=== PATIENT | female | born 1960 | race Two or more races ===

== ENCOUNTER 2021-12-14 13:47 | Outpatient (REF) | payer OTHER, SELFPAY ==
--- NOTE | ~2021-12-14 | XR_ITS ---
EXAMINATION: XR LUMBOSACRAL SPINE WITH OBLIQUES CLINICAL INFORMATION: Back and hip pain COMPARISON: None TECHNIQUE: AP, both oblique, and lateral views of the lumbar spine. Lateral view of the lumbosacral junction. FINDINGS: There is mild curvature of the lumbar sacral spine to the right. Bone alignment is otherwise normal. No fracture or dislocation is seen. Disc spaces are normal. There is lower lumbar spine facet arthritis. XR/XR lumbar spine 4V min IMPRESSION: Mild curvature of the lower lumbar sacral spine to the right and facet arthritis.
--- NOTE | ~2021-12-14 | XR_ITS ---
EXAMINATION: XR BILATERAL HIPS WITH AP PELVIS CLINICAL INFORMATION: Pain. History of fall. COMPARISON: None TECHNIQUE: AP view of the pelvis and frog-leg lateral views of each hip were obtained. FINDINGS: There is mild bilateral hip arthritis with small superior lateral acetabular osteophytes. The hip joints are otherwise normal. No fracture or dislocation is seen. Bones of the pelvis are normal. Soft tissues are normal. XR/XR hip BI w PEL1V IMPRESSION: Mild bilateral hip arthritis.
== END 2021-12-14 13:48 | disposition home or self-care (01) ==
LOC: HO.XRAY 13:47
PROVIDERS: PCP Pediatrics; Visit Provider Pediatrics
DX: M25.551 Pain in right hip (principal); M25.552 Pain in left hip; M54.9 Dorsalgia, unspecified
CPT/HCPCS: 72110; 73521

== ENCOUNTER 2023-06-14 09:21 | Outpatient (REF) | payer OTHER, SELFPAY | END 2023-06-14 09:22 | disposition home or self-care (01) | LOC: HO.CHCLDS 09:21 | PROVIDERS: Visit Provider Pediatrics | DX: E03.9 Hypothyroidism, unspecified (principal); E11.9 Type 2 diabetes mellitus without complications; F31.62 Bipolar disorder, current episode mixed, moderate; Z79.899 Other long term (current) drug therapy | CPT/HCPCS: 36415; 80048; 80061; 80076; 80178; 82306; 82550; 83036; 84443; 85025 ==

== ENCOUNTER 2023-07-09 20:06 | Outpatient (REF) | payer OTHER, SELFPAY ==
[2023-07-12 06:23] LABS: HPV mRNA E6/E7 Not Detected (Not Detected)
== END 2023-07-09 20:07 | disposition home or self-care (01) ==
LOC: HO.CHCLNP 20:06
PROVIDERS: Visit Provider Pediatrics
DX: Z01.419 Encounter for gynecological examination (general) (routine) without abnormal findings (principal); Z11.51 Encounter for screening for human papillomavirus (HPV)
CPT/HCPCS: 87624; 88142

== ENCOUNTER 2023-10-14 11:56 | Outpatient (REF) | payer OTHER, SELFPAY ==
[2023-10-14 15:19] LABS: Uric Acid 4.8 mg/dL (2.4-5.7)
[2023-10-14 15:32] LABS: Erythrocyte Sedimentation Rate 5 MM/HR (0-20)
== END 2023-10-14 11:57 | disposition home or self-care (01) ==
LOC: HO.CHCLDS 11:56
PROVIDERS: Visit Provider Internal Medicine
DX: M25.571 Pain in right ankle and joints of right foot (principal); G89.29 Other chronic pain
CPT/HCPCS: 36415; 84550; 85652

== ENCOUNTER 2023-10-16 13:32 | Outpatient (REF) | payer OTHER, SELFPAY ==
--- NOTE | ~2023-10-16 | XR_ITS ---
EXAMINATION: XR ANKLE, RIGHT CLINICAL INFORMATION: Right ankle pain COMPARISON: None available. TECHNIQUE: AP, lateral, and mortise views of the right ankle. FINDINGS: No fracture. Alignment is anatomic. No erosions. Joint spaces are maintained. There is plantar and superior calcaneal spurring. Soft tissues are normal. XR/XR ankle RT 2V IMPRESSION: Calcaneal spurring
== END 2023-10-16 13:33 | disposition home or self-care (01) ==
LOC: HO.XRAY 13:32
PROVIDERS: PCP Pediatrics; Visit Provider Internal Medicine
DX: M25.571 Pain in right ankle and joints of right foot (principal); G89.29 Other chronic pain
CPT/HCPCS: 73600

== ENCOUNTER 2023-10-24 09:28 | Outpatient (REF) | payer OTHER, SELFPAY ==
--- NOTE | ~2023-10-24 | XR_ITS ---
EXAMINATION: XR KNEE, RIGHT CLINICAL INFORMATION: Swelling and pain after fall COMPARISON: None available. TECHNIQUE: Four views of the right knee. FINDINGS: No fracture or dislocation. No suprapatellar joint effusion. Mild narrowing of the medial joint space height. Small tricompartmental marginal osteophytes, most predominantly involving the patellofemoral compartment. XR/XR knee RT 3V IMPRESSION: Mild degenerative changes of the right knee without fracture or dislocation.
== END 2023-10-24 09:29 | disposition home or self-care (01) ==
LOC: HO.XRAY 09:28
PROVIDERS: Visit Provider Pediatrics
DX: M79.604 Pain in right leg (principal)
CPT/HCPCS: 73562

== ENCOUNTER 2024-01-17 10:08 | Outpatient (REF) | payer OTHER, SELFPAY ==
--- NOTE | ~2024-01-17 | XR_ITS ---
EXAMINATION: XR HIP, RIGHT CLINICAL INFORMATION: New onset right groin pain for 2 weeks without trauma. COMPARISON: 12/14/2021. TECHNIQUE: Two views of the right hip. Limited visualization due to overlying bone and soft tissue structures. FINDINGS: Right hip alignment preserved. Mild degenerative changes with lateral acetabular hypertrophic change and mild joint space narrowing. XR/XR hip RT min 2V IMPRESSION: Mild degenerative changes in the right hip. Additional imaging with CT scan or MRI recommended for further evaluation if there is clinical concern for fracture or other underlying pathology.
== END 2024-01-17 10:09 | disposition home or self-care (01) ==
LOC: HO.XRAY 10:08
PROVIDERS: PCP Pediatrics; Visit Provider Internal Medicine
DX: R10.31 Right lower quadrant pain (principal)
CPT/HCPCS: 73502

== ENCOUNTER 2024-04-01 15:05 | Outpatient (REF) | payer OTHER, SELFPAY ==
[2024-04-01 19:07] LABS: Anion Gap 14 (12-20); Blood Urea Nitrogen 16 mg/dL (9-16); Calcium 9.8 mg/dL (8.4-10.2); Carbon Dioxide 22 mmol/L (22-29); Chloride 109 mmol/L (96-108); Estimated Glomerular Filt Rate 60; Glucose Random 119 mg/dL (60-115); Potassium 3.4 mmol/L (3.3-5.1); Sodium 142 mmol/L (135-145)
[2024-04-01 19:26] LABS: TSH reflex Free T4 2.04 uIU/mL (0.32-4.0)
== END 2024-04-01 15:06 | disposition home or self-care (01) ==
LOC: HO.CHCLDS 15:05
PROVIDERS: Visit Provider Internal Medicine
DX: Z13.89 Encounter for screening for other disorder (principal)
CPT/HCPCS: 36415; 80048; 84443

== ENCOUNTER 2024-04-01 15:31 | Outpatient (REF) | payer OTHER, SELFPAY ==
--- NOTE | ~2024-04-01 | XR_ITS ---
EXAMINATION: XR LUMBOSACRAL SPINE CLINICAL INFORMATION: Lower back pain after fall. COMPARISON: Lumbar spine x-rays of 12/14/2021. TECHNIQUE: Three views of the lumbosacral spine. FINDINGS: Minimal left convex curvature is noted of the lumbar spine. There are 5 lumbar-type bdf-igc-[id number] vertebrae. Vertebral body heights are maintained. Step ladder pattern minimal retrolisthesis is noted from L1 to L5. Intervertebral disc spaces are preserved. Small marginal endplate osteophytes are noted at multiple levels. Posterior elements appear intact. No suspicious lytic or blastic osseous lesion is seen. Minimal dorsal displacement of the distalmost coccygeal segment which does not appear to be included in the yqydj-bp-qlca on the lumbar spine x-rays of 12/14/2021. Remainder of the sacrum and coccyx appear intact. Sclerosis along the sacral and iliac side of bilateral sacroiliac joints is noted. Limited evaluation of the visualized hip joints and symphysis pubis is unremarkable. XR/XR lumbar spine 2-3V IMPRESSION: No evidence of acute compression fracture. Minimal dorsal displacement of the last coccygeal segment is nonspecific and could be trauma-related or congenital. Mild lumbar spondylosis. Sclerosis along the sacroiliac joints is suspected which may indicate sacroiliitis. Recommend clinical correlation.
== END 2024-04-01 15:32 | disposition home or self-care (01) ==
LOC: HO.XRAY 15:31
PROVIDERS: PCP Pediatrics; Visit Provider Internal Medicine
DX: M54.50 Low back pain, unspecified (principal); W19.XXXA Unspecified fall, initial encounter
CPT/HCPCS: 36415; 72100; 80048; 84443

== ENCOUNTER 2024-05-26 13:54 | Outpatient (REF) | payer OTHER, SELFPAY ==
[2024-05-26 15:00] LABS: MANUAL DIFF FLAG NO
[2024-05-26 15:10] LABS: Basophils Percent Auto 0.4 % (0-2); Eosinophils Absolute Auto 0.2 X10*3/uL (0.0-0.4); Eosinophils Percent Auto 1.8 % (0-4); Hematocrit 41.9 % (37.0-47.0); Hemoglobin 13.7 g/dl (12.0-16.0); Imm Gran Abs Auto 0.02 X10*3/uL (0.00-0.03); Imm Gran Pct Auto 0.2 % (0.0-0.4); Lymphocytes Absolute Auto 2.1 X10*3/uL (1.2-4.9); Lymphocytes Percent Auto 23.3 % (20-40); Mean Corpuscular HGB Conc 32.7 g/dl (31.0-35.0); Mean Corpuscular Hemoglobin 28.8 pg (27.0-33.0); Mean Platelet Volume 12.5 fL (9.4-12.3); Monocytes Absolute Auto 0.4 X10*3/uL (0.1-1.2); Monocytes Percent Auto 4.3 % (2-11); Neutrophils Absolute Auto 6.3 x10*3/uL (2.0-8.3); Platelet Count 248 X10*3/uL (160-400); Red Blood Count 4.76 X10*6/uL (4.20-5.50); Red Cell Distribution Width 13.5 % (11.0-16.0); White Blood Count 9.1 X10*3/uL (4.8-10.8)
[2024-05-26 15:44] LABS: Alanine Aminotransferase 15 U/L (0-31); Albumin Level 4.4 g/dL (3.5-5.0); Alkaline Phosphatase 84 U/L (39-117); Anion Gap 11 (12-20); Aspartate Amino Transferase 17 U/L (5-31); Bilirubin Direct 0.1 mg/dL (0.0-0.5); Bilirubin Total 0.3 mg/dL (0.0-1.0); Blood Urea Nitrogen 15 mg/dL (9-16); Calcium 9.8 mg/dL (8.4-10.2); Carbon Dioxide 23 mmol/L (22-29); Chloride 110 mmol/L (96-108); Estimated Glomerular Filt Rate > 60; Glucose Random 118 mg/dL (60-115); Iron 62 mcg/dL (30-160); Magnesium 2.1 mg/dL (1.6-2.6); Percent Iron Saturation 25 % (15-50); Potassium 3.3 mmol/L (3.3-5.1); Sodium 141 mmol/L (135-145); Total Iron Binding Capacity 245 mcg/dL (228-428); Total Protein 7.3 g/dL (6.5-8.0); Unsaturated Iron Binding 183 ug/dL
[2024-05-26 15:48] LABS: Vitamin D 25-OH Total 38.9 ng/mL (>30)
[2024-05-26 16:09] LABS: Folate 9.7 ng/mL (> or = 4.0); Vitamin B12 280 pg/mL (200-900)
== END 2024-05-26 13:55 | disposition home or self-care (01) ==
LOC: HO.CHCLDS 13:54
PROVIDERS: Visit Provider Pediatrics
DX: G62.9 Polyneuropathy, unspecified (principal); E11.9 Type 2 diabetes mellitus without complications
CPT/HCPCS: 36415; 80048; 80076; 82306; 82607; 82746; 83540; 83735; 84443; 85025

== ENCOUNTER 2024-12-30 09:30 | Outpatient (REF) | payer OTHER, SELFPAY ==
--- OUTSIDE RECORDS SUMMARY | 2024-12-30 10:34 | XMS_ITS | Data Portability ---
Author Organization [employer] [facility] [place] in - [facility] Address [address] [place] [phone] Care Team Providers Care Seed And Fertilizer Specialist Name Role Phone [facility] OTHER [phone] [facility] OTHER Assessment No assessment recorded. Plan of Treatment Reminders Order Date Submit Date Provider Last Modified By Organization Details Last Modified Time Details Appointments None recorded. Lab BMP, serum or plasma 2023 024 [facility], [address] [place] [address], [id number] 10:20:30 Referral None recorded. Procedures None recorded. Surgeries None recorded. Imaging None recorded. Medication Orders diclofenac 1 % topical gel 2023 024 [id number], [address], [place], [place], [id number], 10:22:50 Patient TargetsNo targets recorded. Patient InstructionsNo instructions recorded. Reason for Referral None Reported. Results Created Date Observation Date Name Description Value Unit Range Abnormal Flag Note LastModifiedBy Organization Detail LastModifiedTime 01/10/2001/10/2024 BMP, serum or plasm a BUN 14 Not Available [facility] [address], [id number] 01/10/2024 10:03:22 01/10/20 24 01/10/2024 BMP, serum or plasm a Ca 1.19 Not Available [facility] [address], [phone] 01/10/2024 10:03:22 01/10/20 24 01/10/2024 BMP, serum or plasm a CI- 109 Not Available [facility] [address], [phone] 01/10/2024 10:03:22 01/10/20 24 01/10/2024 BMP, serum or plasm a CRE 0.74 Not Available [facility] [address], [id number] 01/10/2024 10:03:22 01/10/20 24 01/10/2024 BMP, serum or plasm a GLU 91 Not Available [facility] [address], [address] [place] [address] 01/10/2024 10:03:22 01/10/20 24 01/10/2024 BMP, serum or plasm a K+ 3.9 Not Available [facility] [address], [address] [place] [address] 01/10/2024 10:03:22 01/10/20 24 01/10/2024 BMP, serum or plasm a Na+ 143 Not Available [facility] [address], [address] [place] [address] 01/10/2024 10:03:22 01/10/20 24 01/10/2024 BMP, serum or plasm a tCO2 24.9 Not Available [facility] [address], [id number] 01/10/2024 10:03:22 Result Notes None recorded. Medical Equipment None Reported. Medications Name Sig Start Date Stop Date Status Note LastModified by Organization Details LastModified Time celecoxib 200 mg capsule active Not Available Not Available Not Available atorvastatin 10 mg tablet TAKE 1 TABLET BY MOUTH EVERY DAY active Not Available Not Available No t Available doxepin 25 mg capsule TAKE 1 CAPSULE BY MOUTH EVERY NIGHT AT BEDTIME active Not Available Not Available No t Available doxepin 75 mg capsule TAKE 1 CAPSULE BY MOUTH EVERY NIGHT AT BEDTIME active Not Available Not Available No t Available sertraline 100 mg tablet TAKE 1 AND 1/2 TABLETS BY MOUTH EVERY MORNING active Not Available Not Available No t Available lithium carbonate 300 mg capsule TAKE 1 CAPSULE BY MOUTH IN THE MORNING AND 2 CAPSULES AT BEDTIME active Not Available Not Available No t Available levothyroxin e 50 mcg tablet TAKE 1 TABLET BY MOUTH ONCE DAILY active Not Available Not Available No t Available omeprazole 20 mg capsule,rica yed release TAKE 1 CAPSULE BY MOUTH EVERY DAY active Not Available Not Available No t Available alprazolam 2 mg tablet TAKE 1 TABLET BY MOUTH TWICE DAILY NEEDED active Not Available Not Available No t Available epinephrine 0.3 mg/0.3 mL injection, auto-injecto r INJECT 1 PEN IN THE MUSCLE ONE TIME DIRECTED active Not Available Not Available No t Available estradiol 0.01% (0.1 mg/gram) vaginal cream active Not Available Not Available Not Available prazosin 2 mg capsule TAKE 1 CAPSULE BY MOUTH EVERY EVENING FOR NIGHTMARES active Not Available Not Available N ot Available aripiprazole 5 mg tablet TAKE 1 AND 1/2 TABLETS BY MOUTH EVERY MORNING active Not Available Not Available No t Available diclofenac 1 % topical gel APPLY 2 GRAMS TO THE AFFECTED AREA TOPICALLY FOUR TIMES DAILY active Not Available Not Available No t Available cholecalcife rol (vitamin D3) 50 mcg (2,000 unit) capsule TAKE 1 CAPSULE BY MOUTH EVERY MORNING active Not Available Not Available No t Available Vitals Date Recorded Heart rate Respiratory rate Oxygen saturation Oxygen saturation in Arterial blood by Pulse oximetry Body weight Body temperature Systolic blood pressure Diastolic blood pressure Provider Name and Address Organization Details Last Updated DateTime 4 70 /min 18 /min 98 % 98 % 49745.6 64 g 98.2 [degF] 122 mm[Hg] 82 mm[Hg] Not Available [facility] - production 4 09:49:36 Social History None recorded. Functional Status None recorded. Mental Status None recorded. Family History Nothing Reported. Medical History No medical history recorded. Gynecological HistoryNo gynecological history recorded. Obstetrics History GPAL:G 0 P 0 0 0 0 Past Encounters Encounter ID Performer Location Encounter Start Date Encounter Closed Date Diagnosis/Indication Diagnosis SNOMED-CT Code Diagnosis ICD10 Code Diagnosis Note [id number] DOMINGO SHAH MD [facility] [address] [place] [phone] 01/10/2024 09:49:32 01/12/2024 12:33:42 Inguinal pain 341610885 R10.2 Evaluation in the field was performed by my numerical control machine operator colleague, as noted above, I provided real-time direction and supervisio n for this visit. The evaluation revealed 63 yo female Bengali speaking with hx of DM with complains of right inguinal area pain since Friday 01/05. Pt reports that pain is worse with ambulation and better at rest. Pain much improved today compared to yesterday. Reports a fall 2 months ago but no pain after the fall until 5 days ago. Denies dysuria, frequency, hematuria. Has been having normal bowel movement. Denies fevers, chills, N/V/D. No swelling or redness at the area of interest .VSSUpon exam pt with FROM of the hip per numerical control machine operator. No pain with eternal or external rotation of the hip, flexion or extension but tender to palpation on the right inguinal area ( see photos). Denies pain worse with cough. No bulging on paramedics palpation. POC BMP with normal electrolyt es. BUN 14, Creat 0.74 Impression :Right inguinal area pain Plan:The etiology of the pain is unknown at this time. It could represent referred pain from the hip, given worsening symptoms with ambulation , but no pain was elicited during a quick hip exam by the numerical control machine operator. A possible inguinal hernia was considered , but no bulging was observed on examinatio n.The patient's pain is currently much improved. They were advised to use Tylenol for pain relief.Rx for diclofenac gel sent to her pharmacy. Declined IM medication s The patient may benefit from a CT abdomen/pe lvis with contrast to evaluate her hip and possible hernia. Her renal function is stable and permits the use of contrast. Patrica Terrell, Nurse at [facility] [place], was contacted after the visit. Lab results are needed for contrast administra tion. She will send the informatio n to the patient's primary care physician. Red flags were discussed with the patient. Primary care, considerCT abdomen/ pelvis with contrast to evaluate her hip and possible hernia. Her renal function is stable and allows contrastDi sposition: We discussed the diagnostic uncertaint y of home visits and the risk associated with this. In this case, the patient and I felt this to be an acceptable and reasonable amount of risk given the benefit of avoiding an ED visit. We discussed the need to seek care urgently/e mergently in the setting of any new or worsening serious symptoms, particular ly fever, redness in the affected area, worsening pain , bulging , N/V/D or any other concerns Health Concerns Section Related Observation LastModified by Organization Detai ls LastModified Time None Recorded Concern Status LastModified by Organization Details LastModified Time None Recorded Advance Directives Directive None Recorded Payers Encounter Date Sequence Insurance Name Policy Number Policy Encarnacion Covered Member ID Encarnacion Member ID Guarantor Name 01/10/2024 1 [facility] - DOS ON OR AFTER 2022 - DUAL ELIGIBLE - HALFWAY OPTIONS AND ONE CARE (MEDICARE REPLACEMENT/ADV ANTAGE - HMO) Magalis Parker [id number] Magalis Parker Notes Date Note Type Note Provider Name and Address Organization Details Recorded Time 01/10/2024 text/html HPI: right lower quadrant pain since Saturday. Per pt pain is intermittent. Pt denies any flan pain, urinary sx, vaginal discharge, or N/V. Per pt if applies pressure no pain. Per pt worse with position changes. Per pt did have a fall 4 month ago. Pt unable to come into our walk in center. agrees to [facility] ................. ................. ................. ................. ................. ................. ................. ................. ..... [facility] Nurse Triage Notes (Elmira Mcclain): Comments: [facility] RN DID NOT NEED FURTHER INFO ................. ................. ................. ................. ................. ................. ................. ................. ..... Trainmaster Note From Prashant Underwood: Pt co hip and left lower groan pain for 5 days. Sts hurts when walking and getting up from sitting position. Pt denies injury, fever, urinary pain, CP , SOB, NVD. Baseline vitals assessed. No pain upon palpation of area of pain. Pt sts it feels better today that in did yesterday. Pt has full ROM of right leg/hip. Afebrile. [facility] contacted and [facility] bloodwork unremarkable. Tylenol and diclofinac gel called into [facility]. [facility] will reach out to pcp for scheduling of imaging appt. Pt education on signs indicating the ER. ................. ................. ................. ................. ................. ................. ................. ................. ..... Disposition: Fulfilled DOMINGO SHAH MD [address] [facility],[address], [place], [address], [place] 01/10/2024 12:56:06 OBGyn Episode No OBEpisode recorded.
--- OUTSIDE RECORDS SUMMARY | 2024-12-30 10:34 | XMS_ITS | Encounter Summary ---
Author Organization [employer] Address [address] [place] [address] Care Team Providers Care Alteration Workroom Supervisor Name Role Phone Katrin Garcia MD Primary Care Provider [phone] Reason for Visit * Reason Comments Med Refill Encounter Details Date Type Department Care Team ([facility] st Contact Info) Description 07/24/2024 Refill [facility] MED & PEDS [address] [place], [place] [phone] Katrin Garcia MD [address] [place] [address] Social History Tobacco Use Types Packs/Day Years Used Date Smoking Tobacco: Never Passive Smoke Exposure: Never Smokeless Tobacco: Never Alcohol Use Standard Drinks/Week Comments Never 0 (1 standard drink = 0.6 oz pur e alcohol) Depression Answer Date Recorded Patient Health Questionnaire-9 Score 7 05/30/2023 Housing Stability Answer Date Recorded What is your housing situation today? I have gomez phillips 07/09/[address] you li ve. Do you have problems with any of the following? None of the above 07/09/2023 Food Insecurity Answer Date Recorded Within the past 12 months, y ou worried that your food would run out before you got money to buy more: Often true 07/09/2023 Within the past 12 months,th e food you bought just didn't last and you didn't have enough money to get more: Often true Transportation Answer Date Recorded In the past 12 months, has l ack of transportation kept you from medical appts, meetings, work or from getting things needed for daily living? I am not sure 07/09/2023 Utilities Answer Date Recorded In the past 12 months, has t he [employer], gas, oil or water company threatened to shut off services in your home? No 07/09/2023 Depression Answer Date Recorded Patient Health Questionnaire-2 Score 2 05/30/2023 Comments Unknown Sex and Gender Information Value Date Recorded Sex Assigned at Female 07/09/2022 10:39 AM EDT Legal Sex Female 10:39 AM EDT Gender Identity Female 07/09/2022 10:39 AM EDT Sexual Orientation Straight 07/09/2022 10 :39 AM EDT documented as of this encounter Plan of Treatment Upcoming Encounters Date Type Department Care Team (Late st Contact Info) Description 03/24/2025 10:15 AM EDT Office Visit [facility] MED & PEDS [address] [place] [address] Katrin Garcia MD [address] [place] [address] documented as of this encounter Visit Diagnoses Not on filedocumented in this encounter Additional Health Concerns Assessment Noted Time PHQ-9 Depression Total Score: 7 05/30/20 23 2:28 PM EDT documented as of this encounter Care Teams Alteration Workroom Supervisor Relationship Specialty Start Date End Date Katrin Garcia MD [address] [place] [address] PCP - General Family Medicine 10/04/21 documented as of this encounter
--- OUTSIDE RECORDS SUMMARY | 2024-12-30 10:34 | XMS_ITS | Encounter Summary ---
Author Organization [employer] Address [address] [place] [address] Care Team Providers Care Calker Name Role Phone Katrin Garcia MD Primary Care Provider [phone] Reason for Visit * Reason Comments Med Refill Encounter Details Date Type Department Care Team ([facility] st Contact Info) Description 07/22/2024 Refill [facility] CHC MED & PEDS [address] [place], [place] [phone] Katrin Garcia MD [address] [place] [address] Social History Tobacco Use Types Packs/Day Years [...] the past 12 months, has t he [employer], gas, oil or water company threatened to [...] Description 03/24/2025 10:15 AM EDT Office Visit [facility] MED & PEDS [address] [place] [address] Katrin Garcia MD [address] [place] [address] documented as of this encounter Visit Diagnoses Not on filedocumented in this encounter Additional Health Concerns Assessment Noted Time PHQ-9 Depression Total Score: 7 05/30/20 23 2:28 PM EDT documented as of this encounter Care Teams Calker Relationship Specialty Start Date End Date Katrin Garcia MD [address] [place] [address] PCP - General Family Medicine 10/04/21 documented as of this encounter
--- OUTSIDE RECORDS SUMMARY | 2024-12-30 10:34 | XMS_ITS | Encounter Summary ---
Author Organization [employer] Address [address] [place] [address] Care Team Providers Care Urgent Care Physician Name Role Phone Katrin Garcia MD Primary Care Provider Reason for Visit * Reason Comments Med Refill Encounter Details Date Type Department Care Team ([facility] st Contact Info) Description 07/11/2024 Refill [facility] CHC MED & PEDS [address] [place], [place] [phone] Katrin Garcia MD [address] [place] [address] Social History Tobacco Use Types Packs/Day Years [...] the past 12 months, has t he [employer], gas, oil or water company threatened to [...] 10:15 AM EDT Office Visit [facility] MED & PEDS [address] [place] [address] Katrin Garcia MD [address] [place] [address] documented as of this encounter Visit Diagnoses Not on filedocumented in this encounter Additional Health Concerns Assessment Noted Time PHQ-9 Depression Total Score: 7 05/30/20 23 2:28 PM EDT documented as of this encounter Care Teams Urgent Care Physician Relationship Specialty Start Date End Date Katrin Garcia MD [address] [place] [address] PCP - General Family Medicine 10/04/21 documented as of this encounter
--- OUTSIDE RECORDS SUMMARY | 2024-12-30 10:34 | XMS_ITS | Encounter Summary ---
Author Organization [employer] Address [address] [place] [address] Care Team Providers Care Care Coordinator Name Role Phone Katrin Garcia MD Primary Care Provider [phone] Reason for Visit * Reason Onset Date Comments Appointment Request 12/29/2024 Encounter Details Date Type Department Care Team ([facility] st Contact Info) Description 12/29/2024 Telephone [facility] MEDICINE [address] [place] [address] Katrin Garcia MD [address] [place], [place] [phone] Appointment Request Social History Tobacco Use Types Packs/Day Years [...] the past 12 months, has t he electric, gas, oil or water company threatened to [...] AM EDT documented as of this encounter Miscellaneous Notes * Telephone Encounter - Yanelis Herman [place] - 12/29/2024 10:46 AM EDT Contacted pt in regards to apt request with nicholas rg Professor Of Industrial [employer]. Had to LVM with call back number. LB documented in this encounter Plan of Treatment Upcoming Encounters Date Type Department Care Team ([facility] st Contact Info) Description 03/24/2025 10:15 AM EDT Office Visit [facility] CHC MED & PEDS [address] [place] [address] Katrin Garcia MD [address] [place] [address] documented as of this encounter Visit Diagnoses Not on filedocumented in this encounter Additional Health Concerns Assessment Noted Time PHQ-9 Depression Total Score: 7 05/30/20 23 2:28 PM EDT documented as of this encounter Care Teams Care Coordinator Relationship Specialty Start Date End Date Katrin Garcia MD [address] [place] [address] PCP - General Family Medicine 10/04/21 documented as of this encounter
--- OUTSIDE RECORDS SUMMARY | 2024-12-30 10:34 | XMS_ITS | Encounter Summary ---
Author Organization [employer] Address [address] [place] [address] Care Team Providers Care Grocery Caddy Name Role Phone Katrin Garcia MD Primary Care Provider [phone] Encounter Details Date Type Department Care Team (Late st Contact Info) Description 10/19/2023 Orders Only [facility] CHC MED & PEDS [address] [place], [place] [phone] Lita Keen MD [address] [place] [address] Calcaneal spur of right foot (Primary Dx) Social History Tobacco Use Types Packs/Day Years [...] Description 03/24/2025 10:15 AM EDT Office Visit [facility] MED & PEDS [address] [place] [address] Katrin Garcia MD [address] [place] [address] documented as of this encounter Visit Diagnoses Diagnosis Calcaneal spur of right foot- Primary documented in this encounter Additional Health Concerns Assessment Noted Time PHQ-9 Depression Total Score: 7 05/30/20 23 2:28 PM EDT documented as of this encounter Care Teams Grocery Caddy Relationship Specialty Start Date End Date Katrin Garcia MD [address] [place] [address] PCP - General Family Medicine 10/04/21 documented as of this encounter
--- OUTSIDE RECORDS SUMMARY | 2024-12-30 10:34 | XMS_ITS | Encounter Summary ---
Author Organization [employer] Address [address] [place] [address] Care Team Providers Care Driver Sales Name Role Phone Katrin Garcia MD Primary Care Provider [phone] Reason for Visit * Reason Comments Med Refill Encounter Details Date Type Department Care Team (Late st Contact Info) Description 04/08/2024 Refill [facility] MEDICINE [address] [place] [address] Katrin Garcia MD [address] [place], [place] [phone] Diet-controlled type 2 diabetes mellitus (CMS/HCC) Social History Tobacco Use Types Packs/Day Years [...] Description 03/24/2025 10:15 AM EDT Office Visit [facility] MED & PEDS [address] [place] [address] Katrin Garcia MD [address] [place] [address] documented as of this encounter Visit Diagnoses Diagnosis Diet-controlled type 2 diabetes mellitus ([facility]) Type II or unspecified type diabetes mellitus without mention of complication, not stated as uncontrolled documented in this encounter Additional Health Concerns Assessment Noted Time PHQ-9 Depression Total Score: 7 05/30/20 23 2:28 PM EDT documented as of this encounter Care Teams Driver Sales Relationship Specialty Start Date End Date Katrin Garcia MD [address] [place] [address] PCP - General Family Medicine 10/04/21 documented as of this encounter
--- OUTSIDE RECORDS SUMMARY | 2024-12-30 10:34 | XMS_ITS | Encounter Summary ---
Author Organization [employer] [facility] Address [address] [facility] 7[address] [place] [address] Care Team Providers Care Utilization Engineer Name Role Phone Katrin Garcia MD Primary Care Provider [phone] Reason for Referral * Cardiology (Routine) - Closed Specialty Diagnoses / Procedures Referred By Contac t Referred To Contact Cardiology Diagnoses Syncope, unspecified syncope type Procedures Holter monitor - 48 hour Lita Keen MD [address] [place] [address] Phone: tel: fax: [address] Phone: tel: fax: Referral ID Status Reason Start Date Expiration Date Visits Re quested Visits Authorized [id number] Closed 04/10/2024 04/10/2025 1 1 Encounter Details Date Type Department Care Team (Late st Contact Info) Description 04/10/2024 Orders Only [facility] MED & PEDS [address] [place] [address] Lita Keen MD [address] [place] [address] Syncope, unspecified syncope type (Primary Dx) Social History Tobacco Use Types [...] Upcoming Encounters Date Type Department Care Team ([facility] Contact Info) Description 03/24/2025 10:15 AM EDT Office Visit [facility] MED & PEDS [address] [place] [address] Katrin Garcia MD [address] [place] [address] Scheduled Orders Name Type Priority Associated Diagnoses Orde r Schedule Holter monitor - 48 hour Cardiac Services Routine Syncope, unspecified syncope type Expected: 04/10/2024 (Approximate), Expires: 04/10/2026 documented as of this encounter Visit Diagnoses Diagnosis Syncope, unspecified syncope type- Primary documented in this encounter Additional Health Concerns Assessment Noted Time PHQ-9 Depression Total Score: 7 05/30/20 23 2:28 PM EDT documented as of this encounter Care Teams Utilization Engineer Relationship Specialty Start Date End Date Katrin Garcia MD [address] [place] [address] PCP - General Family Medicine 10/04/21 documented as of this encounter
--- OUTSIDE RECORDS SUMMARY | 2024-12-30 10:34 | XMS_ITS | Clinical Summary ---
Author Organization [facility] Address [address] [place] [address] Care Team Providers Care Call Taker Name Role Phone Unavailable Primary Care Provider Unavailabl e Social History Tobacco Use Types Packs/Day Years Used Date Smoking Tobacco: Never Assessed Comments Unknown Sex and Gender Information Value Date Recorded Sex Assigned at Not on file Legal Sex Female 4:38 AM EST Gender Identity Not on file Sexual Orientation Not on file Plan of Treatment Health Maintenance Due Date Last Done Comments DTaP,Tdap,and Td Vaccines (1 - Tdap) 1978 Cervical Cancer Screening: Pap Smear 1980 Pneumococcal Vaccine: 50+ Years (1 of 1 - PCV) 2009 Zoster Vaccines (1 of 2) 2009 Colorectal Cancer Screening: Colonoscopy 08/12/2022 Depression Screening 08/12/2022 Hepatitis C Screening 08/12/2022 Social Influencers of Health Screening 08/12/2022 COVID-19 Vaccine ( season) 2024 Falls Risk Assessment 2024 Influenza Vaccine (Season Ended) 2025 Breast Cancer Screening 06/08/2026 06/08/20 24, 06/06/2023, 2022, Additional history exists Osteoporosis Screening (Bone Density Screening) 11/04/2029 11/04/2019 RSV Immunization Adult Patients (1 - 1-dose 75+ series) 2034 HIB Vaccines Aged Out No longer eligi ble based on patient's age to complete this topic HPV Vaccines Aged Out No longer eligi ble based on patient's age to complete this topic Hepatitis A Vaccines Aged Out No long er eligible based on patient's age to complete this topic Hepatitis B Vaccines Aged Out No long er eligible based on patient's age to complete this topic IPV Vaccines Aged Out No longer eligi ble based on patient's age to complete this topic MMR Vaccines Aged Out No longer eligi ble based on patient's age to complete this topic Meningococcal ACWY Vaccine Aged Out N o longer eligible based on patient's age to complete this topic Meningococcal B Vaccine Aged Out No l onger eligible based on patient's age to complete this topic Pneumococcal Vaccine: Pediatrics (0 to 5 Years) and At-Risk Patients (6 to 64 Years) Aged Out No longer eligible based on patient's age to complete this topic RSV Immunization Patients Under 20 months Aged Out No longer eligible based on patient's age to complete this topic Varicella Vaccines Aged Out No longer eligible based on patient's age to complete this topic Procedures Procedure Name Priority Date/Time Associated Diagnosis Comments [facility] SCREENING DIGITAL Routine 06/08/2024 12:51 PM EDT [facility] DEXA AXIAL SKELETON Routine 11/04/2019 2:10 PM EST Other specified disorders of bone density and structure, other site from Last 3 Months or Most Recently Relevant to Health Maintenance Results * [facility] SCREENING DIGITAL (06/08/2024 12:51 PM EDT) Anatomical Region Laterality Modality Mammography 06/08/2024 9:07 AM EDT Narrative 06/08/2024 12:51 PM EDT [facility] Diagnostic Imaging Department [address] [place] [address] Patient: ??ALIREZA PARKER ?/Age/Sex: 1960 - 64 - F Unit#: ??[id number] ? Location/Status: ??SPDIMAM/REG CLI ? Mnemonic/Ordering Site: ??DIGSC/SPMAM Ordering Physician: ??CONI GARCIA Sari Screening Digital - 06/08/24 - 922 Report Status:Signed EXAM: [facility] Screening Digital EXAM DATE AND TIME: 06/08/2024 9:24 AM HISTORY: ??Screening. COMPARISON: ??06/06/23, 06/01/22, 05/29/21 TECHNIQUE: Bilateral digital breast tomosynthesis was performed in the CC and MLO projections. Computer aided detection with [employer] 3D 3.1 was employed. TISSUE DENSITY: b. There are scattered areas of fibroglandular density. FINDINGS: No suspicious masses, grouped microcalcifications, or areas of architectural distortion are seen. Coarse, benign calcifications in the medial right breast are without significant change. The skin and vascularity are unremarkable. IMPRESSION: Stable mammographic appearance of the breasts. ??No evidence of malignancy is seen. A negative mammogram in the presence of a clinically suspicious palpable abnormality does not preclude the possibility of malignancy or alter the indications for biopsy. BI-RADS: ??Category 2: Benign RECOMMENDATION(S): 1: Routine screening mammogram BILATERAL in 1 year. Mammogram performed at [facility] [place] [address] Dictating Physician: ??JUANITA RENTERIA MD Electronically Signed by: ??JUANITA RENTERIA MD Dic Date/Time: ??06/08/24 1251 Sign date/Time: ??06/08/24 1251 Procedure Note Juanita Renteria MD - 06/24/2024 [facility] Diagnostic Imaging Department [address] [place] [address] Patient: ALIREZA PARKER /Age/Sex: 1960 - 64 - F Unit#: [id number] Location/Status: SPDIMAM/REG CLI Mnemonic/Ordering Site: [facility] Ordering Physician: CONI GARCIA [facility] Screening Digital - 06/08/24 - 922 Report Status:Signed EXAM: [facility] Screening Digital EXAM DATE AND TIME: 06/08/2024 9:24 AM HISTORY: Screening. COMPARISON: 06/06/23, 06/01/22, 05/29/21 TECHNIQUE: Bilateral digital breast tomosynthesis was performed in the CCand MLO projections. Computer aided detection with [employer]de[employer] 3D 3.1was employed. TISSUE DENSITY: b. There are scattered areas of fibroglandular density. FINDINGS: No suspicious masses, grouped microcalcifications, or areas ofarchitectural distortion are seen. Coarse, benign calcifications in the medial rightbreast are without significant change. The skin and vascularity areunremarkable. IMPRESSION: Stable mammographic appearance of the breasts. No evidence of malignancyis seen. A negative mammogram in the presence of a clinically suspicious palpable abnormality does not preclude the possibility of malignancy or alter the indications for biopsy. BI-RADS: Category 2: Benign RECOMMENDATION(S): 1: Routine screening mammogram BILATERAL in 1 year. Mammogram performed at [facility] [place] [address] Dictating Physician: JUANITA RENTERIA MD Electronically Signed by: JUANITA RENTERIA MD Dic Date/Time: 06/08/24 1251 Sign date/Time: 06/08/24 1251 us Coni Garcia MD IMG BI PROCEDURES Final Resul t * SARI DEXA AXIAL SKELETON (11/04/2019 2:10 PM EST) Anatomical Region Laterality Modality Mammography 11/04/2019 8:49 AM EST Narrative 11/04/2019 2:10 PM EST [facility] Diagnostic Imaging Department [address] [place] [address] Patient: ??ALIREZA PARKER ?/Age/Sex: 1960 - 59 - F Unit#: ??[id number] ? Location/Status: ??SPDIMAM/PRE CLI ? Mnemonic/Ordering Site: ??MAMDEXAAX/SPMAM Ordering Physician: ??LIZZ CHAVEZ MD Sari Dexa Axial Skeleton - 11/04/19 - 1111 HISTORY: ??The patient is a 59-year-old postmenopausal female with clinical concern for metabolic bone disease. FINDINGS: ??Dual energy x-ray absorptiometry of the lumbar spine and femurs is performed. The mean bone mineral density at L2-4 (with the exclusion of L3) is 0.934 gm/cm2 which is 78% of that of young normals and 84% of that of age matched controls. This yields a T-score of -2.2 and a Z-score of -1.5 which is diagnostic of osteopenia. The mean bone mineral density of the femurs bilaterally is 0.991 gm/cm2 which is 98% of that of young normals and 106% of that of age matched controls. ??This yields a T-score of -0.1 and a Z-score of 0.5 and there is therefore no evidence of osteoporosis or osteopenia here. IMPRESSION: 1. Osteopenia. 2. FRAX analysis yields a 10-year probability of major osteoporotic fracture of 7.6% and a 10-year probability of hip fracture of 0.2%. Code 81587 Dictating Physician: ??LISSETH PENA MD Electronically Signed by: ??LISSETH PENA MD Dic Date/Time: ??11/04/19 1409 Sign date/Time: ??11/04/19 1410 Procedure Note Lisseth Pena - 08/29/2022 [facility] Diagnostic Imaging Department [address] [place] [address] Patient: ALIREZA PARKER /Age/Sex: 1960 - 59 - F Unit#: [id number] Location/Status: SPDIMAM/PRE CLI Mnemonic/Ordering Site: [facility] Ordering Physician: LIZZ CHAVEZ MD [facility] Dexa Axial Skeleton - 11/04/19 - 1111 HISTORY: The patient is a 59-year-old postmenopausal female withclinical concern for metabolic bone disease. FINDINGS: Dual energy x-ray absorptiometry of the lumbar spine and femursis performed. The mean bone mineral density at L2-4 (with the exclusion ofL3) is 0.934 gm/cm2 which is 78% of that of young normals and 84% of that ofage matched controls. This yields a T-score of -2.2 and a Z-score of -1.5which is diagnostic of osteopenia. The mean bone mineral density of the femurs bilaterally is 0.991 gm/uq2etkwh is 98% of that of young normals and 106% of that of age matched controls.This yields a T-score of -0.1 and a Z-score of 0.5 and there is therefore noevidence of osteoporosis or osteopenia here. IMPRESSION: 1. Osteopenia. 2. FRAX analysis yields a 10-year probability of major osteoporoticfracture of 7.6% and a 10-year probability of hip fracture of 0.2%. Code 47973 Dictating Physician: LISSETH PENA MD Electronically Signed by: LISSETH PENA MD Dic Date/Time: 11/04/19 1409 Sign date/Time: 11/04/19 1410 Lizz SAWYER BI PROCEDURES Final Res ult from Last 3 Months or Most Recently Relevant to Health Maintenance
--- OUTSIDE RECORDS SUMMARY | 2024-12-30 10:34 | XMS_ITS | Encounter Summary ---
Author Organization [employer] Address [address] [place] [address] Care Team Providers Care Facilities Officer Name Role Phone Katrin Garcia MD Primary Care Provider [phone] Reason for Visit * Reason Onset Date Comments Med Refill 07/31/2024 Encounter Details Date Type Department Care Team (Late st Contact Info) Description 07/31/[address] [facility] MEDICINE [address] [place] [address] Katrin Garcia MD [address] [place], [place] [phone] Med Refill Social History Tobacco Use Types Packs/Day Years [...] encounter Miscellaneous Notes * Telephone Encounter - Nasrin Upton LPN - 07/31/2024 2:17 PM EST Medication sent to [facility] #[id number] on 07/07/24 #90 with 2 refills. * Telephone Encounter - Stephanie Reilly - 07/31/2024 2:13 PM EST TC from pt requesting medication refill. Medications needing refill : levothyroxine (Synthroid, Levoxyl) 50 MCG tablet To be sent to: [id number] documented in this encounter Plan of Treatment Upcoming Encounters Date Type Department Care Team (Late st Contact Info) Description 03/24/2025 10:15 AM EDT Office Visit [facility] MED & PEDS [address] [place] [address] Katrin Garcia MD [address] [place] [address] documented as of this encounter Visit Diagnoses Not on filedocumented in this encounter Additional Health Concerns Assessment Noted Time PHQ-9 Depression Total Score: 7 05/30/20 23 2:28 PM EDT documented as of this encounter Care Teams Facilities Officer Relationship Specialty Start Date End Date Katrin Garcia MD [address] [place] [address] PCP - General Family Medicine 10/04/21 documented as of this encounter
--- OUTSIDE RECORDS SUMMARY | 2024-12-30 10:34 | XMS_ITS | Clinical Summary ---
Author Organization [facility] [facility] Address [address] [facility] 7t [place] [address] Care Team Providers Care Masonry Supervisor Name Role Phone Katrin Garcia MD Primary Care Provider [phone] Allergies Active Allergy Reactions Criticality Noted Date Comments Apple 07/09/2023 Other reaction(s): [D]Shortness of breath throat closes throat closes Kiwi Extract Anaphylaxis High 10/04/2021 Raspberry 07/09/2023 Other reaction(s): [D]Shortness of breath throat closes throat closes [place] Extract Anaphylaxis High 10/04/2021 Other reaction(s): [D]Shortness of breath [place] Oil 07/09/2023 Other reaction(s): [D]Shortness of breath throat closes throat closes Medications ALPRAZolam (Xanax) 2 MG tablet take 1 tablet by oral route every day Active ARIPiprazole (Abilify) 5 MG tablet take 1 tablet by oral route every day Active glucose blood (FREESTYLE LITE) test strip check bs by skin route 2 times every day Active lithium 600 MG capsule take 1 capsule by oral route 2 times every bedtime Active sertraline (Zoloft) 100 MG tablet take 1 Tablet by Oral route every day Active Blood Glucose Monitoring Suppl (FreeStyle Lite) w/Device kit Freestyle lite meter kit Use 1 glucometer by As Directed route 2 times every day Active FreeStyle lancets Freestyle lancets 28 gauge Use 1 lancet by to Skin route 2 times every day Active estradiol (Estrace) 0.1 MG/GM vaginal creamIndicati ons:Atrophic vaginitis Insert 1 g into the vagina in the morning. 1g vaginally x 14d, then twice weekly thereafter 42.5 g 2 022 Active benzocaine-me nthol (Chloraseptic ) 6-10 MG lozengeIndica tions:COVID-1 9 Dissolve 1 lozenge in the mouth every 2 (two) hours if needed for sore throat. 100 lozenge 023 Active lithium 300 MG capsule TAKE 1 CAPSULE BY MOUTH IN THE MORNING AND TAKE 2 CAPSULES BY MOUTH AT BEDTIME 023 Active prazosin (Minipress) 2 MG capsule TAKE 1 CAPSULE BY MOUTH EVERY EVENING FOR NIGHTMARES 024 Active celecoxib (CeleBREX) 200 MG capsuleIndica tions:Low back pain at multiple sites,Chronic pain of right ankle Take 1 capsule (200 mg) by mouth 2 times daily. 60 capsule 3 024 Active FREESTYLE LITE test stripIndicati ons:Diet-cont rolled type 2 diabetes mellitus (CMS/HCC) Use to test blood sugar 2 times daily 100 each 024 2024 Active Alcohol Swabs 70 % padsIndicatio ns:Diet-contr olled type 2 diabetes mellitus (CMS/HCC) Use to test blood sugar 2 times daily 100 each 11 024 Active Blood Glucose Monitoring Suppl (FreeStyle [place] Lite) w/Device kitIndication s:Diet-contro lled type 2 diabetes mellitus (CMS/HCC) Use to test blood sugar 2 times daily 1 kit 024 Active doxepin (SINEquan) 75 MG capsule Take 75 mg by mouth at bedtime. Active FreeStyle lancetsIndica tions:Diet-co ntrolled type 2 diabetes mellitus (CMS/HCC) USE TO TEST BLOOD GLUCOSE TWICE DAILY 100 each 11 024 Active Cyanocobalami n 1000 MCG capsule Take 1 capsule orally daily 30 capsule 024 Active cholecalcifer ol VITAMIN D (Vitamin D-3) 50 MCG (1999 UT) capsule TAKE 1 CAPSULE BY MOUTH EVERY MORNING 30 capsule 11 024 Active omeprazole (PriLOSEC) [address] capsuleIndica tions:Diet-co ntrolled type 2 diabetes mellitus (CMS/HCC) TAKE 1 CAPSULE BY MOUTH EVERY DAY 90 capsule 1 024 Active senna-docusat e (Stimulant Laxative) 8.6-50 MG tablet TAKE 2 TABLETS BY MOUTH ONCE A DAY 60 tablet 3 024 Active atorvastatin (Lipitor) 10 MG tabletIndicat ions:Diet-con trolled type 2 diabetes mellitus (CMS/HCC) TAKE 1 TABLET BY MOUTH EVERY DAY 90 tablet 1 025 Active levothyroxine (Synthroid, Levoxyl) 50 MCG tablet TAKE 1 TABLET BY MOUTH ONCE DAILY 90 tablet 2 025 Active eszopiclone (Lunesta) 3 MG tablet Take 3 mg by mouth at bedtime. 025 Active estradiol (Estrace) 0.1 MG/GM vaginal creamIndicati ons:Vaginal discharge 1 gm intravaginally twice a week 42.5 g 11 025 Active EPINEPHrine (Epipen) 0.3 MG/0.3ML injection syringe Inject 0.3 mL (0.3 mg) as directed 1 (one) time for 1 dose. Inject into upper leg. Call 911 after use. 0.3 mL 3 025 Active estradiol (Estrace) 0.1 MG/GM vaginal creamIndicati ons:Vaginal discharge Insert 1 g into the vagina at bedtime. 1g vaginally x 14d, then twice weekly thereafter 42.5 g 2 022 2024 Discontinued(R eorder (will not trigger notification to Pharmacy)) EPINEPHrine (Epipen) 0.3 MG/0.3ML injection syringe Inject 0.3 mL (0.3 mg) as directed 1 (one) time for 1 dose. Inject into upper leg. Call 911 after use. 0.3 mL 023 2024 Discontinued(R eorder (will not trigger notification to Pharmacy)) bisacodyl (Dulcolax) 10 MG suppositoryIn dications:Con stipation Insert 1 suppository (10 mg) into the rectum if needed each day for constipation. Yoruba instructions 4 suppository 1 024 2024 Discontinued(T herapy completed) Active Problems Problem Noted Date Diagnosed Date Encounter for well woman carlo ervin with routine gynecological exam 07/09/2023 Depressive disorder 07/09/2023 07/09/2023 Hypothyroidism 10/04/2021 Diet-controlled type 2 diabetes mellitus 022 Mixed bipolar affective disorder, moderate 10/04 Encounters Date Type Department Care Team Description 12/29/2024 Telephone [facility] MEDICINE [address] [place] [address] Katrin Garcia MD Appointment Request 12/23/2024 10:15 AM EDT Office Visit [facility] MED & PEDS [address] [place] [address] Katrin Garcia MD Acquired hypothyroidism (Primary Dx); Diet-controlled type 2 diabetes mellitus (CMS/HCC); Vaginal discharge; Mixed bipolar affective disorder, moderate (CMS/HCC); Dietary counseling; Exercise counseling 12/23/2024 Travel 10/21/2024 Telephone [facility] MED & PEDS [address] [place] [address] Katrin Gracia MD Med Refill 10/21/2024 Refill [facility] MEDICINE [address] [place] [address] Katrin Garcia MD Diet-controlled type 2 diabetes mellitus ([facility]/HCC) 10/04/2024 Refill [facility] MEDICINE [address] [place] [address] Katrin Garcia MD Diet-controlled type 2 diabetes mellitus ([facility]/HCC) 10/02/2024 1:30 PM EST Clinical Support [facility] DIABETES/NUTRITION [address] [place], [place] [phone] Raquel Loaiza RD Weight gain (Primary Dx) 10/02/2024 Travel from Last 3 Months Immunizations Name Administration Dates Next Due Influenza Injectable Quadriv alant Preservative Free IIV4 MDCK 07/02/2022 Influenza injectable quadriv alent preservative free 07/09/2023 Influenza, seasonal, injecta ble, preservative free 05/26/2024 Moderna Covid-19 Vaccine 12+ 01/30/2022 Pfizer Covid-19 Vaccine 12+ 10/18/2021,,01/31/2021 Pneumococcal Conjugate PCV 20 04/15/2024 Td (adult), unspecified 04/28/1997 Tdap 12/28/2020 Zoster, Recombinant 09/19/2022,07/09/2022 Social History Tobacco Use Types Packs/Day Years Used Date Smoking Tobacco: Never Passive Smoke Exposure: Never Smokeless Tobacco: Never Tobacco Cessation:Counseling Given: Not Answered Alcohol Use Standard Drinks/Week Comments Never 0 [...] Orientation Straight 07/09/2022 10 :39 AM EDT Last Filed Vital Signs Vital Sign Reading Time Taken Comments Blood Pressure 123/75 12/23/2024 9:55 AM EDT Pulse 74 12/23/2024 9:55 AM EDT Temperature 36.6 ??C (97.8 ??F) 12/23/2024 9:55 AM ED T Respiratory Rate 20 12/23/2024 9:55 AM EDT Oxygen Saturation 94% 08/05/2024 9:38 AM EST Inhaled Oxygen Concentration - - Weight 84.4 kg (186 lb) 12/23/2024 9:55 AM EDT Height 160 cm (5' 3 ) 12/23/2024 9:55 AM EDT Body Mass Index 32.95 12/23/2024 9:55 AM EDT Plan of Treatment Upcoming Encounters Date Type Department Care Team ([facility] st Contact Info) Description 03/24/2025 10:15 AM EDT Office Visit [facility] CHC MED & PEDS [address] [place] [address] Katrin Garcia MD [address] [place] [address] Health Maintenance Due Date Last Done Comments CT Colonography 1960 Colonoscopy 1960 Colorectal Cancer Screening 1960 FIT DNA/Cologuard 1959 FIT 1959 FOBT 1960 Sigmoidoscopy 1959 Diabetes: Foot Exam 1969 Eye Exam 1969 Alcohol/Substance Use Screening 1971 Hepatitis C Screening 1977 Diabetes: Urine Protein Screening 10/09/2022 10/09/2021 COVID-19 Vaccine ( season) 2024 07/22/2023, 01/30/2022, 10/18/2021, Additional history exists Depression Screening 05/30/2024 05/30/2023, 05/30/20 23 SDOH Screening 05/30/2024 05/30/2023 Lipid Panel 06/14/2024 06/14/2023, 10/09/2021 Diabetes: Hemoglobin A1C 06/24/2025 025, 08/05/2024, 04/15/2024, Additional history exists Tobacco Screening 08/05/2025 08/05/2024 Mammogram 06/08/2026 06/08/2024, 2022 Pap Smear 07/09/2026 07/09/2023, 07/09/2023 Cervical Cancer Screening 07/09/2028 HPV/Cotest 07/09/2028 07/09/2023 DTaP/Tdap/Td Vaccines (2 - Td or Tdap) 12/28/2030 12/28/2020, 04/28/1997 RSV Patients and Patients Aged 60 years or older (1 - 1-dose 75+ series) 2034 Zoster Vaccines Completed 09/19/2022, 07/09/2022 Pneumococcal Vaccine: 50+ Years Completed 04/15/2024 Influenza Vaccine Completed 05/26/2024, , 07/02/2022 HIB Vaccines Aged Out No longer eligi [...] patient's age to complete this topic Meningococcal Vaccine Aged Out No nora nora eligible based on patient's age to complete this topic RSV under 20 months Aged Out No longe r eligible based on patient's age to complete this topic Rotavirus Vaccines Aged Out No longer eligible based on patient's age to complete this topic Procedures Procedure Name Priority Date/Time Associated Diagnosis Comments POCT GLYCATED HEMOGLOBIN, TOTAL Routine 12/23/2024 10:02 AM EDT Diet-controlled type 2 diabetes mellitus (CMS/HCC) POCT GLUCOSE Routine 12/23/2024 10:01 AM EDT Diet-controlled type 2 diabetes mellitus (CMS/HCC) HM MAMMOGRAPHY Routine 06/08/2024 9:03 AM EDT HPV DNA PROBE, AMPLIFIED Routine 07/09/2023 9:45 AM EDT PAP SMEAR Routine 07/09/2023 9:45 AM EDT LIPID PANEL, STANDARD Routine 06/14/2023 9:27 AM EDT Acquired hypothyroidism Diet-controlled type 2 diabetes mellitus (CMS/HCC) Mixed bipolar affective disorder, moderate (CMS/HCC) ALBUMIN, RANDOM URINE W/CREATININE Routine 10/09/2021 8:57 AM EST from Last 3 Months or Most Recently Relevant to Health Maintenance Results * POCT HGB A1C (12/23/2024 10:02 AM EDT) Pathologist [facility] Hemoglobin A1C 5.9 4.0 - 6.0 % QC Media Lot # [id number] Lot# Expiration Date Blood 12/23/2024 10:0 2 AM EDT Katrin Garcia MD POINT OF CARE TEST ENTER/EDIT ORDERABLES Final Result * POCT Glucose (12/23/2024 10:01 AM EDT) Pathologist [facility] Glucose Blood, POC 112 60 - 200 mg/dL QC Media Lot # [id number] Lot# Expiration Date Blood Capillary blood specimen / Unknown 12/23/2024 10:01 AM EDT Katrin Garcia MD POINT OF CARE TEST ENTER/EDIT ORDERABLES Final Result * Hm Mammography (06/08/2024 9:03 AM EDT) Anatomical Region Laterality Modality Other Colt Hoang MD HEALTH MAINTENANCE Final Result * HPV DNA probe, amplified (07/09/2023 9:45 AM EDT) [facility] HPV mRNA E6/E7 Not Detected Not Detected [facility] Comment:Methodology: Transcr iption-Mediated AmplificationThis assay detects E6/E7 viral messenger RNA (mRNA) from 14high-risk HPV types (16,18,31,33,35,39,45,51,52,56,58,59,66,68).Cervical sources are required for HPV testing.If a vaginal source from a patient who has had atotal hysterectomy with removal of cervix wassubmitted, please contact the testing laboratoryfor alternative testing options.For additional information, please refer tohttp://education.vocaltap/faq/KIV881o4(This link if provided for information/educational purposes only.)THIS TEST WAS PERFORMED AT:[facility] [place] [id number] JEFFREY MD 07/09/2023 9:45 AM EDT 07/10/2023 9:00 AM EDT us Katrin Garcia MD LAB MICROBIOLOGY - GENERAL OR DERABLES Final Result [facility] [address] [place] [phone] * Pap Smear (07/09/2023 9:45 AM EDT) 07/09/2023 9:45 AM EDT 07/10/2023 9:00 AM EDT Narrative [facility] - 07/18/2023 11:11 AM EST ----- ------- Name: Magalis Parker ? Age/Sex: 63/F ? : 1960 Unit#: [id number] ?? Attend Dr: Katrin Garcia MD ?Re07/09/23 ?Status: DEP REF ? Location: HO.CHCLNP ? Disch: ? ----- ------- SPEC : [id number] ?RECD: 07/10/23 ? STATUS: ??SOUT ? REQ NUM: [id number] ? TIAN: 07/09/23 ? SUBM DR: Katrin Garcia MD ? ENTERED: ??07/10/23 ?SP TYPE: Pap Smr ?OTHR : ? ORDERED: ??Pap Smear ? Interpretation ?? Satisfactory for evaluation. ?? Atrophic. ?? Negative for intraepithelial lesion or malignancy. ?HPV mRNA E6/E7: ?NOT DETECTED ? This assay detects E6/E7 viral messenger RNA (mRNA) from 14 high-risk HPV types (16, 18, ?? 31, 33, 35, 39, 45, 51, 52, 56, 58, 59, 66, 68) ?? HPV testing performed by [facility], [place], [place]. ??See reference laboratory ?? pion of the EMR for entire report. ?Clinical Information LMP: Unknown date Previous PAP test: Unknown date/findings Other history: Hysterectomy 8yrs ago due to uterine fibroids. ? Material Received ?? ThinPrep-Vaginal ----- ------- Signed (signature on file) PEYMAN Quinones (ASCP) 07/18/23 1111 ? ----- ------- ? END OF REPORT ? us Katrin Garcia MD LAB CYTOLOGY ORDERABLES Final Result [facility] [address] [place] [phone] * Lipid Panel, Standard (06/14/2023 9:27 AM EDT) Triglycerides 102 <150 mg/dL [facility] Comment:Desirable Triglyceri de: less than 150 mg/dLBorderline High Triglyceride 150-199 mg/dLHigh Triglyceride: 200-499 mg/dLVery High Triglyceride: greater than or equal to 5OO mg/dL Cholesterol 160 <200 mg/dL [facility] Comment:Desirable Cholestero l: less than 200 mg/dLBorderline High Cholesterol: 200-239 mg/dLHigh Cholesterol: greater than 239 mg/dL LDL Cholesterol Calculated 69 <100 mg/dL [facility] Comment:Desirable LDL: less than 100 mg/dLNear Optimal/Above Optimal LDL: 110- 129 mg/dLBorderline High LDL: 130-159 mg/dLHigh LDL: 160-189 mg/dLVery High LDL: greater than or equal to 190 mg/dL HDL Cholesterol 71 >40 mg/dL [facility] Comment:Desirable HDL: great er than 40 mg/dL Note: This HDL assay may give artificially low results in patients with liver disease. Blood Venous blood specimen / Unknown 06/14/2023 9:27 AM EDT 06/14/2023 2:13 PM EDT us Katrin Garcia MD LAB BLOOD ORDERABLES Final Re sult Performing Organization Address [facility] Co de Phone Number [facility] [address] [place] [address] [phone] * (ABNORMAL) ALBUMIN, RANDOM URINE W/CREATININE (10/09/2021 8:57 AM EST) Microalbumin Urine 3.6 See Note: mg/dL [facility] Comment: Reference Range: ?? Reference Range Not established Microalb/Creat Ratio 32(H) <30 mcg/mg creat [facility] Comment: ?? The ADA defines abnormalities in albumin excretion as follows: ?? Albuminuria Category ?Result (mcg/mg creatinine) ?? Normal to Mildly increased ?? <30 Moderately increased ? 30-299 ?? Severely increased ? > OR = 300 ?? The ADA recommends that at least two of three specimens collected within a 3-6 month period be abnormal before considering a patient to be within a diagnostic category. Creatinine, Urine 111 20 - 275 mg/dL [facility] 10/09/2021 8:57 AM EST us Katrin Garcia MD LAB URINE ORDERABLES Final Re sult Performing Organization Address [facility]/ZIP Co de Phone Number [facility] [address] from Last 3 Months or Most Recently Relevant to Health Maintenance [place] [address] [place] [address] - [employer] Advance Directives Documents on File Type Date Recorded Patient Sprinkling System Irrigator Expl anation HealthCare Proxy 07/19/2023 Health Care Proxy Care Teams Masonry Supervisor Relationship Specialty Start Date End Date Katrin Garcia MD [address] [place] [id number] PCP - General Family Medicine 10/04/21
[2024-12-30 14:11] LABS: MANUAL DIFF FLAG NO
[2024-12-30 14:35] LABS: Basophils Percent Auto 0.7 % (0-2); Eosinophils Absolute Auto 0.2 X10*3/uL (0.0-0.4); Eosinophils Percent Auto 3.2 % (0-4); Hemoglobin 12.6 g/dl (12.0-16.0); Imm Gran Abs Auto 0.01 X10*3/uL (0.00-0.03); Imm Gran Pct Auto 0.2 % (0.0-0.4); Lymphocytes Absolute Auto 1.9 X10*3/uL (1.2-4.9); Lymphocytes Percent Auto 31.6 % (20-40); Mean Corpuscular HGB Conc 31.5 g/dl (31.0-35.0); Mean Corpuscular Hemoglobin 28.6 pg (27.0-33.0); Mean Corpuscular Volume 90.9 fL (80.0-98.0); Mean Platelet Volume 12.4 fL (9.4-12.3); Monocytes Absolute Auto 0.3 X10*3/uL (0.1-1.2); Monocytes Percent Auto 4.7 % (2-11); Neutrophils Absolute Auto 3.6 x10*3/uL (2.0-8.3); Neutrophils Percent Auto 59.6 % (45-73); Platelet Count 217 X10*3/uL (160-400); Red Cell Distribution Width 13.6 % (11.0-16.0)
[2024-12-30 14:37] LABS: Alanine Aminotransferase 19 U/L (0-31); Albumin Level 4.2 g/dL (3.5-5.0); Alkaline Phosphatase 86 U/L (39-117); Anion Gap 11 (12-20); Aspartate Amino Transferase 25 U/L (5-31); Bilirubin Direct 0.1 mg/dL (0.0-0.5); Bilirubin Total 0.3 mg/dL (0.0-1.0); Blood Urea Nitrogen 11 mg/dL (9-16); Calcium 9.6 mg/dL (8.4-10.2); Carbon Dioxide 25 mmol/L (22-29); Chloride 113 mmol/L (96-108); Cholesterol 155 mg/dL (<200); Estimated Glomerular Filt Rate > 60; Glucose Fasting 118 mg/dL (60-99); HDL Cholesterol 69 mg/dL (>40); LDL Cholesterol Calculated 72 mg/dL (<100); Sodium 145 mmol/L (135-145); Total Protein 6.9 g/dL (6.5-8.0); Triglycerides 71 mg/dL (<150)
[2024-12-30 14:38] LABS: Creatinine Urine 53.65 mg/dL; Microalbum/Creatinine Ratio Ur 20.5 ug/mg cr (<30)
[2024-12-30 14:54] LABS: TSH reflex Free T4 2.52 uIU/mL (0.32-4.0); Vitamin D 25-OH Total 48.3 ng/mL (>30)
== END 2024-12-30 09:31 | disposition home or self-care (01) ==
LOC: HO.CHCLDS 09:30
PROVIDERS: Visit Provider Pediatrics
DX: E03.9 Hypothyroidism, unspecified (principal); E11.9 Type 2 diabetes mellitus without complications; N89.8 Other specified noninflammatory disorders of vagina; F31.62 Bipolar disorder, current episode mixed, moderate
CPT/HCPCS: 36415; 80048; 80061; 80076; 80178; 82043; 82306; 82570; 84443; 85025

== ENCOUNTER 2025-07-19 13:29 | Outpatient (REF) | payer OTHER, SELFPAY ==
--- NOTE | ~2025-07-19 | MM_ITS ---
EXAMINATION: DXA BONE DENSITY AXIAL HISTORY: osteopenia,post menopausal TECHNIQUE: [employer] Dual energy absorptiometry (DEXA) of the lumbar spine, total left hip, and femoral neck was performed. COMPARISON: None FINDINGS: The bone mineral density of the lumbar spine is 0.960 g/cm2, corresponding to a T-score of -1.8, and a Z-score of -0.8. This is indicative of osteopenia. The bone mineral density of the left total hip is 1.007 g/cm2, corresponding to a T-score of 0, and a Z-score of 0.8. This is indicative of normal bone mineral density. The bone mineral density of the left femoral neck is 0.968 g/cm2, corresponding to a T-score of -0.5, and a Z-score of 0.6. This is indicative of normal bone mineral density. FRACTURE RISK: The FRAX index suggests a ten year probability of major osteoporotic fracture of 7.5%, and of hip fracture 0.2%. MM/XR DEXA axial skeleton IMPRESSION: Based on bone mineral density, and according to World Health Organization (WHO) criteria, the diagnosis is consistent with osteopenia based on lowest T score of -1.8 in the lumbar spine. Statistically, 68% of repeat scans fall within 1 SD (+/- 0.010 g/cm2 for AP spine L1-L4) and 1 SD (+/- 0.012 g/cm2 for femur total) FRAX is a trademark of the [employer] [place] for Metabolic Bone Disease, a World Health Organization (WHO) Collaborating Center. Electronically signed by: Isidra Garza MD 07/20/2025 08:[address] [facility]
--- NOTE | ~2025-07-19 | MM_ITS ---
EXAMINATION: MM SCREENING DIGITAL BREAST TOMOSYNTHESIS, BILATERAL CLINICAL INFORMATION: Screening. Asymptomatic. COMPARISON: Comparison made to multiple prior, most recent June 08, 2024, and most remote June 01, 2022. TECHNIQUE: Digital breast tomosynthesis is performed in mediolateral oblique and craniocaudal views along with computer-aided detection (CAD). Synthesized 2D images are generated from the tomosynthesis. FINDINGS: BREAST COMPOSITION: There are scattered areas of fibroglandular density. BILATERAL BREASTS: No significant masses, suspicious calcifications or other abnormalities are seen in either breast. MM/MM tomosynthesis screening BI IMPRESSION: BILATERAL BREASTS: Negative, no mammographic evidence of malignancy. Normal interval follow-up is recommended in 12 months. ASSESSMENT: BI-RADS: Category 1: Negative RECOMMENDATION: Routine annual mammography screening. FOLLOW-UP: 1 year F/U This examination should not preclude the clinical evaluation of a suspicious palpable abnormality. This patient's information was entered into a reminder system with a target due date for their next mammogram. Electronically signed by: Zohaib Hansen MD 07/20/2025 09:33 PM [facility]
--- OUTSIDE RECORDS SUMMARY | 2025-07-19 15:35 | XMS_ITS | Encounter Summary ---
Author Organization [employer] Address [address] [facility] 7t [place] [address] Care Team Providers Care Tobacco Stripper Name Role Phone Katrin Garcia MD Primary Care Provider [phone] Encounter Details Date Type Department Care Team (Late st Contact Info) Description 10/19/2023 Orders Only [facility] CHC MED & PEDS [address] [place], [place] [phone] Lita Keen MD [address] [place] [address] Calcaneal spur of right foot (Primary Dx) [...] is your housing situation today? I have goemz phillips 07/09/[address] you [...] Care Team (Late st Contact Info) Description 07/30/2025 11:30 AM EST Clinical Support [facility] DIABETES/NUTRITION [address] [place], [place] [phone] Raquel Loaiza [address] [place] [address] documented as of this encounter Visit Diagnoses Diagnosis Calcaneal spur of right foot- Primary documented in this encounter Additional Health Concerns Assessment Noted Time PHQ-9 Depression Total Score: 7 05/30/20 23 2:28 PM EDT documented as of this encounter Care Teams Tobacco Stripper Relationship Specialty Start Date End Date Katrin Garcia MD [address] [place] [address] PCP - General Family Medicine 10/04/21 documented as of this encounter
--- OUTSIDE RECORDS SUMMARY | 2025-07-19 15:35 | XMS_ITS | Encounter Summary ---
Author Organization [employer] Address [address] [facility] 7t [place] [address] Care Team Providers Care Charcoal Burner Beehive Kiln Name Role Phone Katrin Garcia MD Primary Care Provider [phone] Reason for Visit * Reason Onset Date Comments image scheduling needed 05/12/2025 Encounter Details Date Type Department Care Team (Late st Contact Info) Description 05/12/2025 Telephone [facility] MEDICINE [address] [place] [address] Katrin Garcia MD [address] [place], [place] [phone] image scheduling needed Social History Tobacco Use Types Packs/Day Years Used Date Smoking Tobacco: Never Passive Smoke Exposure: Never Smokeless Tobacco: Never Alcohol Use Standard Drinks/Week Comments Never 0 (1 standard drink = 0.6 oz pur e alcohol) Depression Answer Date Recorded Patient Health Questionnaire-9 Score 9 03/24/2025 Patient Health Questionnaire-9 Score 9 03/24/2025 Last PHQ-9: Questionnaire Data Not on file 0 03/24/2025 Housing Stability Answer Date Recorded What is your housing situation today? I have gomez phillips 03/24/[address] you li ve. Do you have problems with any of the following? None of the above 03/24/2025 Food Insecurity Answer Date Recorded Within the past 12 months, y ou worried that your food would run out before you got money to buy more: Sometimes True 2024 Within the past 12 months,th e food you bought just didn't last and you didn't have enough money to get more: Sometimes True 03/24/2025 Transportation Answer Date Recorded In the past 12 months, has l ack of transportation kept you from medical appts, meetings, work or from getting things needed for daily living? No 03/24/2025 Utilities Answer Date Recorded In the past 12 months, has t he electric, gas, oil or water company threatened to shut off services in your home? No 03/24/2025 Depression Answer Date Recorded Patient Health Questionnaire-2 Score 2 03/24/2025 Internet Access Answer Date Recorded Internet Access Q1 Yes 03/24/2025 Internet Access Q2 Not on file 03/24/2025 Comments Unknown Sex and Gender Information Value Date Recorded Sex Assigned at Female 07/09/2022 10:39 AM EDT Legal Sex Female 10:39 AM EDT Gender Identity Female 07/09/2022 10:39 AM EDT Sexual Orientation Straight 07/09/2022 10 :39 AM EDT documented as of this encounter Miscellaneous Notes * Telephone Encounter - Ruel Miller - 05/12/2025 9:02 AM EDT TC from having a hard time Scheduling Dexa Scan and Mammography. Pt states contacted [facility] but they only spoke kazakh and was unable to schedule. documented in this encounter Plan of Treatment Upcoming Encounters Date Type Department Care Team (Late st Contact Info) Description 07/30/2025 11:30 AM EST Clinical Support [facility] DIABETES/NUTRITION [address] [place] [address] [place] [address] documented as of this encounter Visit Diagnoses Not on filedocumented in this encounter Additional Health Concerns Assessment Noted Time PHQ-9 Depression Total Score: 9 03/24/20 25 10:17 AM EDT documented as of this encounter Care Teams Charcoal Burner Beehive Kiln Relationship Specialty Start Date End Date Katrin Garcia MD [address] [place] [address] PCP - General Family Medicine 10/04/21 documented as of this encounter
--- OUTSIDE RECORDS SUMMARY | 2025-07-19 15:35 | XMS_ITS | Encounter Summary ---
Author Organization [employer] Address [address] [facility] 7t [place] [address] Care Team Providers Care Deposit Refund Clerk Name Role Phone Katrin Garcia MD Primary Care Provider [phone] Reason for Visit * Reason Comments Med Refill Encounter Details Date Type Department Care Team ([facility] st Contact Info) Description 07/16/2025 Refill [facility] MED [facility] PEDS [address] [place], [place] [phone] Katrin Garcia MD [address] [place] [address] Social History Tobacco Use Types Packs/Day Years [...] Description 07/30/2025 11:30 AM EST Clinical Support [facility] DIABETES/NUTRITION [address] [place] [address] [place] [address] documented as of this encounter Visit Diagnoses Not on filedocumented in this encounter Additional Health Concerns Assessment Noted Time PHQ-9 Depression Total Score: 9 03/24/20 25 10:17 AM EDT documented as of this encounter Care Teams Deposit Refund Clerk Relationship Specialty Start Date End Date Katrin Garcia MD [address] [place] [address] PCP - General Family Medicine 10/04/21 documented as of this encounter
--- OUTSIDE RECORDS SUMMARY | 2025-07-19 15:35 | XMS_ITS | Encounter Summary ---
Author Organization [employer] Address [address] [facility] 7[address] [place] [address] Care Team Providers Care Sport Psychologist Name Role Phone Katrin Garcia MD Primary Care Provider [phone] Reason for Visit * Reason Comments Med Refill Encounter Details Date Type Department Care Team (Late st Contact Info) Description 04/08/2024 Refill [facility] MEDICINE [address] [place], [place] [phone] Katrin Garcia MD [address] [place], [place] [phone] Diet-controlled type 2 diabetes mellitus (CMS/HCC) Social [...] Description 07/30/2025 11:30 AM EST Clinical Support [facility] DIABETES/NUTRITION [address] [place] [address] [place] [address] documented as of this encounter Visit Diagnoses Diagnosis Diet-controlled type 2 diabetes mellitus (HCC) Type II or unspecified type diabetes mellitus without mention of complication, not stated as uncontrolled documented in this encounter Additional Health Concerns Assessment Noted Time PHQ-9 Depression Total Score: 7 05/30/20 23 2:28 PM EDT documented as of this encounter Care Teams Sport Psychologist Relationship Specialty Start Date End Date Katrin Garcia MD [address] [place] [address] PCP - General Family Medicine 10/04/21 documented as of this encounter
--- OUTSIDE RECORDS SUMMARY | 2025-07-19 15:35 | XMS_ITS | Encounter Summary ---
Author Organization [employer] Address [address] [facility] 7t [place] [address] Care Team Providers Care Forensic Photographer Name Role Phone Katrin Garcia MD Primary Care Provider [phone] Reason for Visit * Reason Comments Med Refill Encounter Details Date Type Department Care Team ([facility] st Contact Info) Description 07/22/2024 Refill C [facility] [address] [place], [place] [phone] Katrin Garcia MD [address] [place] [address] Social History Tobacco Use Types Packs/Day Years [...] Description 07/30/2025 11:30 AM EST Clinical Support [facility] DIABETES/NUTRITION [address] [place] [address] [place] [address] documented as of this encounter Visit Diagnoses Not on filedocumented in this encounter Additional Health Concerns Assessment Noted Time PHQ-9 Depression Total Score: 7 05/30/20 23 2:28 PM EDT documented as of this encounter Care Teams Forensic Photographer Relationship Specialty Start Date End Date Katrin Garcia MD [address] [place] [address] PCP - General Family Medicine 10/04/21 documented as of this encounter
--- OUTSIDE RECORDS SUMMARY | 2025-07-19 15:35 | XMS_ITS | Encounter Summary ---
Author Organization [employer] Address [address] [facility] 7 [place] [address] Care Team Providers Care Second Vp Hr Assessment Name Role Phone Katrin Garcia MD Primary Care Provider [phone] Reason for Referral * Cardiology (Routine) - Closed Specialty Diagnoses / Procedures Referred By Contac t Referred To Contact Cardiology Diagnoses Syncope, unspecified syncope type Procedures Holter monitor - 48 hour Lita Keen MD [address] [place] [address] Phone: tel: fax: [address] Phone: tel: fax: Referral ID Status Reason Start Date Expiration Date Visits Re quested Visits Authorized [id number] Closed 04/10/2024 04/10/2025 1 1 Encounter Details Date Type Department Care Team (Late st Contact Info) Description 04/10/2024 Orders Only [facility] MED & PEDS [address] [place] [address] Lita Keen MD [address] [place] [address] Syncope, unspecified syncope type (Primary Dx) Social [...] your housing situation today? I have gomez sing 07/09/[address] you li [...] Description 07/30/2025 11:30 AM EST Clinical Support [facility] DIABETES/NUTRITION [address] [place] [address] [place] [address] Scheduled Orders Name Type Priority Associated Diagnoses [...] documented as of this encounter Care Teams Second Vp Hr Assessment Relationship Specialty Start Date End Date Katrin Garcia MD [address] [place] [address] PCP - General Family Medicine 10/04/21 documented as of this encounter
--- OUTSIDE RECORDS SUMMARY | 2025-07-19 15:35 | XMS_ITS | Clinical Summary ---
Author Organization [employer] [facility] ity Address [address] [place] [address] Care Team Providers Care Customer Sales Advisor Name Role Phone Unavailable Primary Care Provider Unavailabl e Social History Tobacco Use Types Packs/Day Years Used Date Smoking Tobacco: Never Assessed Comments Unknown Sex and Gender Information Value Date Recorded Sex Assigned at Not on file Legal Sex Female 4:38 AM EST Gender Identity Not on file Sexual Orientation Not on file Plan of Treatment Health Maintenance Due Date Last Done Comments Colorectal Cancer Screening: Colonoscopy 1960 DTaP,Tdap,and Td Vaccines (1 - Tdap) 1978 Pneumococcal Vaccine: 50+ Years (1 of 1 - PCV) 2009 Zoster Vaccines (1 of 2) 2009 Hepatitis C Screening 08/12/2022 Social Influencers of Health Screening 08/12/2022 Falls Risk Assessment 2024 Depression Screening 09/09/2024 COVID-19 Vaccine ( - 2023- season) 2025 Influenza Vaccine (#1) 2025 Breast Cancer Screening 06/08/2026 06/08/20 24, [...] Procedure Name Priority Date/Time Associated Diagnosis Comments [facility] SCREENING DIGITAL Routine 06/08/2024 12:51 PM EDT [facility] DEXA AXIAL SKELETON Routine 11/04/2019 2:10 PM EST Other specified disorders of bone density and structure, other site from Last 3 Months or Most Recently Relevant to Health Maintenance Results * [facility] SCREENING DIGITAL (06/08/2024 12:51 PM EDT) Anatomical Region Laterality Modality Mammography 06/08/2024 9:07 AM EDT Narrative 06/08/2024 12:51 PM EDT [facility] Diagnostic Imaging Department [address] [place] [address] Patient: ALIREZA PARKER /Age/Sex: 1960 - 64 - F Unit#: [id number] Location/Status: [facility]/REG CLI Mnemonic/Ordering Site: [facility] Ordering Physician: CONI GARCIA [facility] Screening Digital - 06/08/[address] Report Status:Signed EXAM: [facility] Screening Digital EXAM DATE AND TIME: 06/08/2024 9:24 AM HISTORY: Screening. COMPARISON: 06/06/23, 06/01/22, 05/29/21 TECHNIQUE: Bilateral digital breast tomosynthesis was performed in the CC and MLO projections. Computer aided detection with [employer] 3D 3.1 was employed. TISSUE DENSITY: b. There are scattered areas of fibroglandular density. FINDINGS: No suspicious masses, grouped microcalcifications, or areas of architectural distortion are seen. Coarse, benign calcifications in the medial right breast are without significant change. The skin and vascularity are unremarkable. IMPRESSION: Stable mammographic appearance of the breasts. No evidence of malignancy is seen. A negative mammogram in the presence of a clinically suspicious palpable abnormality does not preclude the possibility of malignancy or alter the indications for biopsy. BI-RADS: Category 2: Benign RECOMMENDATION(S): 1: Routine screening mammogram BILATERAL in 1 year. [facility] performed at [facility] [address] [place] [address] Dictating Physician: JUANITA RENTERIA MD Electronically Signed by: JUANITA RENTERIA MD Dic Date/Time: 06/08/24 1251 Sign date/Time: 06/08/24 1251 Procedure Note Juanita Renteria MD - 06/24/2024 [facility] Diagnostic Imaging Department [address] [place] [address] Patient: ALIREZA PARKER /Age/Sex: 1960 - 64 - F Unit#: [id number] Location/Status: [facility]/REG CLI Mnemonic/Ordering Site: [facility] Ordering Physician: CONI GARCIA [facility] Screening Digital - 06/08/24 - 922 Report Status:Signed EXAM: [facility] Screening Digital EXAM DATE AND TIME: 06/08/2024 9:24 AM HISTORY: Screening. COMPARISON: 06/06/23, 06/01/22, 05/29/21 TECHNIQUE: Bilateral digital breast tomosynthesis was performed in the CCand MLO projections. Computer aided detection with [employer] 3D 3.1was employed. TISSUE DENSITY: b. There [...] Mammogram performed at [facility] at [address] [address] Dictating Physician: JUANITA RENTERIA MD Electronically Signed by: JUANITA RENTERIA MD Dic Date/Time: 06/08/24 1251 Sign date/Time: 06/08/24 1251 us Coni Garcia MD IMG BI PROCEDURES Final Resul t * [facility] DEXA AXIAL SKELETON (11/04/2019 2:10 PM EST) Anatomical Region Laterality Modality Mammography 11/04/2019 8:49 AM EST Narrative 11/04/2019 2:10 PM EST [facility] Diagnostic Imaging Department [address] [place] [address] Patient: ALIREZA PARKER /Age/Sex: 1960 - 59 - F Unit#: [id number] Location/Status: SPD[facility]AM/PRE CLI Mnemonic/Ordering Site: [facility] Ordering Physician: LIZZ VELÁZQUEZ MD [facility] Dexa Axial Skeleton - 11/04/19 - 1111 HISTORY: The patient is a 59-year-old postmenopausal female with clinical concern for metabolic bone disease. FINDINGS: Dual [...] 106% of that of age matched controls. This yields a T-score of -0.1 and a Z-score of 0.5 and there is therefore no evidence of osteoporosis or osteopenia here. IMPRESSION: 1. Osteopenia. 2. FRAX analysis yields a 10-year probability of major osteoporotic fracture of 7.6% and a 10-year probability of hip fracture of 0.2%. Code 49653 Dictating Physician: LISSETH PENA MD Electronically Signed by: LISSETH PENA MD Dic Date/Time: 11/04/19 1409 Sign date/Time: 11/04/19 1410 Procedure Note Lisseth Pena - 08/29/2022 [facility] Diagnostic Imaging Department [address] [place] [address] Patient: ALIREZA PARKER /Age/Sex: 1960 - 59 - F Unit#: [id number] Location/Status: SPDIMAM/PRE CLI [facility] Ordering Physician: LIZZ VELÁZQUEZ MD [facility] Dexa Axial Skeleton - 11/04/19 [...] density of the femurs bilaterally is 0.991 gm/ha9cmwzq is 98% of that of young normals and 106% of that of age matched controls.This yields a T-score of -0.1 and a Z-score of 0.5 and there is therefore noevidence of osteoporosis or osteopenia here. IMPRESSION: 1. Osteopenia. 2. FRAX analysis yields a 10-year probability of major osteoporoticfracture of 7.6% and a 10-year probability of hip fracture of 0.2%. Code 88714 Dictating Physician: LISSETH PENA MD Electronically Signed by: LISSETH PENA MD Dic Date/Time: 11/04/19 1409 Sign date/Time: 11/04/19 1410 Lizz Velázquez DO IM BI PROCEDURES Final Res ult from Last 3 Months or Most Recently Relevant to Health Maintenance
--- OUTSIDE RECORDS SUMMARY | 2025-07-19 15:35 | XMS_ITS | Encounter Summary ---
Author Organization [employer] Address 75 [facility] 7t [place] [address] Care Team Providers Care Park Aide Name Role Phone Katrin Garcia MD Primary Care Provider Reason for Visit * Reason Comments Med Refill Encounter Details Date Type Department Care Team ([facility] st Contact Info) Description 07/11/2024 Refill C [facility] [address] [place], [place] [phone] Katrin Garcia MD [address] [place] [address] Social History Tobacco Use Types Packs/Day Years [...] Description 07/30/2025 11:30 AM EST Clinical Support [facility] DIABETES/NUTRITION [address] [place] [address] [place] [address] documented as of this encounter Visit Diagnoses Not on filedocumented in this encounter Additional Health Concerns Assessment Noted Time PHQ-9 Depression Total Score: 7 05/30/20 23 2:28 PM EDT documented as of this encounter Care Teams Park Aide Relationship Specialty Start Date End Date Katrin Garcia MD [address] [place] [address] PCP - General Family Medicine 10/04/21 documented as of this encounter
--- OUTSIDE RECORDS SUMMARY | 2025-07-19 15:35 | XMS_ITS | Encounter Summary ---
Author Organization [employer] Address 75 [facility] 7t [place] [address] Care Team Providers Care Water Jet Operator Name Role Phone Katrin Garcia MD Primary Care Provider [phone] Reason for Visit * Reason Comments Med Refill Encounter Details Date Type Department Care Team ([facility] st Contact Info) Description 07/24/2024 Refill C [facility] [address] [place], [place] [phone] Katrin Garcia MD [address] [place] [address] Social History Tobacco Use Types Packs/Day Years [...] Description 07/30/2025 11:30 AM EST Clinical Support [facility] DIABETES/NUTRITION [address] [place] [address] [place] [address] documented as of this encounter Visit Diagnoses Not on filedocumented in this encounter Additional Health Concerns Assessment Noted Time PHQ-9 Depression Total Score: 7 05/30/20 23 2:28 PM EDT documented as of this encounter Care Teams Water Jet Operator Relationship Specialty Start Date End Date Katrin Garcia MD [address] [place] [address] PCP - General Family Medicine 10/04/21 documented as of this encounter
--- OUTSIDE RECORDS SUMMARY | 2025-07-19 15:35 | XMS_ITS | Data Portability ---
Author Organization [facility] [email or web address] [facility] Address [address] [place] [id number] Care Team Providers Care Learning Disabled Teacher Name Role Phone Unavailable OTHER HIM CCA OTHER Assessment No assessment recorded. Plan of Treatment Reminders Order Date Submit Date Provider Last Modified By Organization Details Last Modified Time Details Appointments None recorded. Lab BMP, serum or plasma 2023 024 [facility], [address] [place] [address], [phone] 4 10:20:30 Referral None recorded. Procedures None recorded. Surgeries None recorded. Imaging None recorded. Medication Orders diclofenac 1 % topical gel 2023 024 [id number], [address] [place], [place], [id number], 10:22:50 Patient TargetsNo targets recorded. Patient InstructionsNo instructions recorded. Reason for Referral None Reported. Results Created Date Observation Date Name Description Value Unit Range Abnormal Flag Note LastModifiedBy Organization Detail LastModifiedTime 01/10/20 24 01/10/2024 BMP, serum or plasm a BUN 14 Not Available [facility] [address], [phone] 01/10/2024 10:03:22 01/10/20 24 01/10/2024 BMP, serum or plasm a Ca 1.19 Not Available [facility] [address], [phone] 01/10/2024 10:03:22 01/10/20 24 01/10/2024 BMP, serum or plasm a CI- 109 Not Available [facility] [address], [phone] 01/10/2024 10:03:22 01/10/20 24 01/10/2024 BMP, serum or plasm a CRE 0.74 Not Available [facility] [address], [phone] 01/10/2024 10:03:22 01/10/20 24 01/10/2024 BMP, serum or plasm a GLU 91 Not Available [facility] [address], [phone] 01/10/2024 10:03:22 01/10/20 24 01/10/2024 BMP, serum or plasm a K+ 3.9 Not Available [facility] [address], [address] [place] [address] 01/10/2024 10:03:22 01/10/20 24 01/10/2024 BMP, serum or plasm a Na+ 143 Not Available [facility] [address], [address] [place] [address] 01/10/2024 10:03:22 01/10/20 24 01/10/2024 BMP, serum or plasm a tCO2 24.9 Not Available [facility] [address], [phone] 01/10/2024 10:03:22 Result Notes None recorded. Medical [...] Pulse oximetry Body weight Body temperature Systolic And Diastolic Provider Name and Address Organization Details Last Updated DateTime 4 70 /min 18 /min 98 % 98 % 80047.6 64 g 98.2 [degF] 122/82 mm[Hg] Not Available [employer] - production 4 [...] Diagnosis SNOMED-CT Code Diagnosis ICD10 Code Diagnosis IMO Codes Diagnosis Note [id number] DOMINGO HSAH MD Main - [facility] [address] [place] [phone] 01/10/2024 09:49:32 01/12/2024 12:33:42 Inguinal pain 110089005 R10.2 Evaluation in the field was performed by my marketing coordinator colleague, as noted above, I provided real-time direction and supervisio n for this visit. The evaluation revealed 63 yo female Ukrainian speaking with hx of DM with complains [...] pt with FROM of the hip per marketing coordinator. No pain with eternal or external rotation [...] during a quick hip exam by the marketing coordinator. A possible inguinal hernia was considered , [...] use of contrast. Patrica Terrell, Nurse at [facility], was contacted after the visit. Lab results [...] Recorded Advance Directives Directive None Recorded Payers Insurance Date Sequence Insurance Name Policy Number Policy Encarnacion Covered Member ID Encarnacion Member ID Guarantor Name 01/12/2024 1 [facility] - DOS ON OR AFTER 2022 - DUAL ELIGIBLE - DETENTION OPTIONS AND ONE CARE (MEDICARE REPLACEMENT/ADV ANTAGE - HMO) Magalis Parker [id number] Magalis Parker Notes Date Note Type Note Provider Name and Address Organization Details Recorded Time 01/10/2024 text/html ROS as noted in the HPI HPI: right lower quadrant pain since Saturday. [...] ................. ................. ................. ................. ................. ................. ..... District Leader Note From Prashant Underwood: Pt co hip [...] Tylenol and diclofinac gel called into RX. C will reach out to pcp for scheduling of imaging appt. Pt education on signs indicating the ER. ................. ................. ................. ................. ................. ................. ................. ................. ..... Disposition: Fulfilled DOMINGO SHAH MD [address] [facility],[address], [place], [address], [employer] 01/10/2024 12:56:06 OBGyn Episode No OBEpisode recorded.
--- OUTSIDE RECORDS SUMMARY | 2025-07-19 15:35 | XMS_ITS | Encounter Summary ---
Author Organization [employer] Address 75 [facility] 7t [place] [address] Care Team Providers Care Double Backer Name Role Phone Katrin Garcia MD Primary Care Provider [phone] Reason for Visit * Reason Comments Med Refill Encounter Details Date Type Department Care Team ([facility] st Contact Info) Description 07/16/2025 Refill C [facility] [address] [place], [place] [phone] Katrin Garcia MD [address] [place] [address] Social History Tobacco Use Types Packs/Day Years [...] Description 07/30/2025 11:30 AM EST Clinical Support [facility] DIABETES/NUTRITION [address] [place] [address] [place] [address] documented as of this encounter Visit Diagnoses Not on filedocumented in this encounter Additional Health Concerns Assessment Noted Time PHQ-9 Depression Total Score: 9 03/24/20 25 10:17 AM EDT documented as of this encounter Care Teams Double Backer Relationship Specialty Start Date End Date Katrin Garcia MD [address] [place] [address] PCP - General Family Medicine 10/04/21 documented as of this encounter
--- OUTSIDE RECORDS SUMMARY | 2025-07-19 15:35 | XMS_ITS | Encounter Summary ---
Author Organization [employer] Address [address] [facility] 7t [place] [address] Care Team Providers Care Sausage Grinder Name Role Phone Katrin Garcia MD Primary Care Provider [phone] Reason for Visit * Reason Onset Date Comments Med Refill 07/31/2024 Encounter Details Date Type Department Care Team (Late st Contact Info) Description 07/31/2024 Telephone [facility] MEDICINE [address] [place] [address] Katrin Garcia MD [address] [place], [place] [phone] Med Refill Social History Tobacco Use Types [...] 07/31/2024 2:17 PM EST Medication sent to [facility] #[id number] on 07/07/24 #90 with 2 refills. * Telephone Encounter - Stephanie Reilly - 07/31/2024 2:13 PM EST TC from pt requesting medication refill. Medications needing refill : levothyroxine (Synthroid, Levoxyl) 50 MCG tablet To be sent to: [facility] #[id number] documented in this encounter Plan of Treatment Upcoming Encounters Date Type Department Care Team (Late st Contact Info) Description 07/30/2025 11:30 AM EST Clinical Support [facility] DIABETES/NUTRITION [address] [place] [address] [place] [address] documented as of this encounter Visit Diagnoses Not on filedocumented in this encounter Additional Health Concerns Assessment Noted Time PHQ-9 Depression Total Score: 7 05/30/20 23 2:28 PM EDT documented as of this encounter Care Teams Sausage Grinder Relationship Specialty Start Date End Date Katrin Garcia MD [address] [place] [address] PCP - General Family Medicine 10/04/21 documented as of this encounter
--- OUTSIDE RECORDS SUMMARY | 2025-07-19 15:35 | XMS_ITS | Clinical Summary ---
Author Organization [employer] Address [address] [facility] [address] [place] [address] Care Team Providers Care Electric Serviceman Name Role Phone Katrin Garcia MD Primary Care Provider [phone] Allergies Active Allergy Reactions Criticality Noted Date Comments Apple 07/09/2023 Other reaction(s): [D]Shortness of breath throat closes throat closes Kiwi Extract Anaphylaxis High 10/04/2021 Raspberry 07/09/2023 Other reaction(s): [D]Shortness of breath throat closes throat closes Southmayd Extract Anaphylaxis High 10/04/2021 Other reaction(s): [D]Shortness of breath [place] Oil 07/09/2023 Other reaction(s): [D]Shortness of breath throat closes throat closes Medications ALPRAZolam (Xanax) 2 MG tablet take 1 tablet by oral route every day Active ARIPiprazole (Abilify) 5 MG tablet take 1 tablet by oral route every day Active glucose blood (FREESTYLE LITE) test strip check bs by skin route 2 times every day 10/04/19 22 Active lithium 600 MG capsule take 1 capsule by oral route 2 times every bedtime Active sertraline (Zoloft) 100 MG tablet take 1 Tablet by Oral route every day Active Blood Glucose Monitoring Suppl (FreeStyle Lite) w/Device kit Freestyle lite meter kit Use 1 glucometer by As Directed route 2 times every day 10/04/19 22 Active FreeStyle lancets Freestyle lancets 28 gauge Use 1 lancet by to Skin route 2 times every day 10/04/19 22 Active estradiol (Estrace) 0.1 MG/GM vaginal creamIndicati ons:Atrophic vaginitis Insert 1 g into the vagina in the morning. 1g vaginally x 14d, then twice weekly thereafter 42.5 g 2 08/16/20 22 Active benzocaine-me nthol (Chloraseptic ) 6-10 MG lozengeIndica tions:COVID-1 9 Dissolve 1 lozenge in the mouth every 2 (two) hours if needed for sore throat. 100 lozenge 05/23/20 23 Active lithium 300 MG capsule TAKE 1 CAPSULE BY MOUTH IN THE MORNING AND TAKE 2 CAPSULES BY MOUTH AT BEDTIME 05/20/20 23 Active prazosin (Minipress) 2 MG capsule TAKE 1 CAPSULE BY MOUTH EVERY EVENING FOR NIGHTMARES 10/14/19 24 Active celecoxib (CeleBREX) 200 MG capsuleIndica tions:Low back pain at multiple sites,Chronic pain of right ankle Take 1 capsule (200 mg) by mouth 2 times daily. 60 capsule 3 04/01/20 24 Active Alcohol Swabs 70 % padsIndicatio ns:Diet-contr olled type 2 diabetes mellitus (HCC) Use to test blood sugar 2 times daily 100 each 11 04/01/20 24 Active Blood Glucose Monitoring Suppl (FreeStyle Ballwin Lite) w/Device kitIndication s:Diet-contro lled type 2 diabetes mellitus (HCC) Use to test blood sugar 2 times daily 1 kit 04/01/20 24 Active doxepin (SINEquan) 75 MG capsule Take 75 mg by mouth at bedtime. Active FreeStyle lancetsIndica tions:Diet-co ntrolled type 2 diabetes mellitus (HCC) USE TO TEST BLOOD GLUCOSE TWICE DAILY 100 each 11 05/19/20 24 Active Cyanocobalami n 1000 MCG capsule Take 1 capsule orally daily 30 capsule 11 05/26/20 24 Active senna-docusat e (Stimulant Laxative) 8.6-50 MG tablet TAKE 2 TABLETS BY MOUTH ONCE A DAY 60 tablet 3 09/04/20 24 Active levothyroxine (Synthroid, Levoxyl) 50 MCG tablet TAKE 1 TABLET BY MOUTH ONCE DAILY 90 tablet 2 10/21/19 25 Active eszopiclone (Lunesta) 3 MG tablet Take 3 mg by mouth at bedtime. 11/03/19 25 Active estradiol (Estrace) 0.1 MG/GM vaginal creamIndicati ons:Vaginal discharge 1 gm intravaginally twice a week 42.5 g 11 12/24/19 25 Active EPINEPHrine (Epipen) 0.3 MG/0.3ML injection syringe Inject 0.3 mL (0.3 mg) as directed 1 (one) time for 1 dose. Inject into upper leg. Call 911 after use. 0.3 mL 3 12/24/19 25 Active DayVigo 10 MG tablet Take 10 mg by mouth at bedtime. 02/27/20 25 Active celecoxib (CeleBREX) 100 MG capsule Take 1 capsule (100 mg) by mouth 2 times daily. 60 capsule 3 04/27/20 25 2024 Active cholecalcifer ol VITAMIN D (Vitamin D-3) 50 MCG (1999) capsule TAKE 1 CAPSULE BY MOUTH EVERY MORNING 30 capsule 11 05/24/20 25 Active atorvastatin (Lipitor) 10 MG tabletIndicat ions:Diet-con trolled type 2 diabetes mellitus (HCC) TAKE 1 TABLET BY MOUTH EVERY DAY 90 tablet 1 05/24/20 25 Active omeprazole (PriLOSEC) [address] capsuleIndica tions:Diet-co ntrolled type 2 diabetes mellitus (HCC) TAKE 1 CAPSULE BY MOUTH EVERY DAY 90 capsule 1 07/12/20 25 Active omeprazole (PriLOSEC) [address] capsuleIndica tions:Diet-co ntrolled type 2 diabetes mellitus (HCC) TAKE 1 CAPSULE BY MOUTH EVERY DAY 90 capsule 1 01/07/20 25 2024 Discontinued Active Problems Problem Noted Date Diagnosed Date Encounter for well woman carlo ervin with routine gynecological exam 07/09/2023 Depressive disorder 07/09/2023 07/09/2023 Hypothyroidism 10/04/2021 Diet-controlled type 2 diabetes mellitus 022 Mixed bipolar affective disorder, moderate (CMS/ HCC) 10/04/2021 Encounters Date Type Department Care Team Description 07/16/2025 Refill [facility] [address] [place] [address] Katrin Garcia MD 07/16/2025 Refill [facility] [address] [place] [address] Katrin Garcia MD 07/10/2025 Refill [facility] [address] [place] [address] Katrin Garcia MD Diet-controlled type 2 diabetes mellitus (HCC) 06/21/2025 1:30 PM EDT Clinical Support [facility]/NUTRITION [address] [place] [address] Diet-controlled type 2 diabetes mellitus (HCC) (Primary Dx) 06/21/2025 Travel 05/25/2025 Orders Only [facility] [address] [place] [address] Katrin Garcia MD Osteopenia of lumbar spine (Primary Dx); Breast cancer screening by mammogram 05/24/2025 Refill [facility] [address] [place] [address] Katrin Garcia MD Diet-controlled type 2 diabetes mellitus (CMS/HCC) 05/22/2025 Refill [facility] [address] [place] [address] Katrin Garcia MD 05/17/2025 1:30 PM EDT Clinical Support [facility] DI[facility]ET[facility]/NUTRITION [address] [place] [address] Weight gain (Primary Dx) 05/17/2025 Travel 05/12/[address] [phone] Katrin Garcia MD image scheduling needed 05/10/2025 Travel 04/27/2025 2:30 PM EDT Office Visit [facility] [address] [place] [address] Katrin Garcia MD Bilateral primary osteoarthritis of knee (Primary Dx); Acquired hypothyroidism; Mixed bipolar affective disorder, moderate (CMS/HCC) 04/27/2025 Travel 04/26/2025 Telephone [facility] [address] [place] [phone] Katrin Garcia MD Nurse Triage 04/26/[address] [address] Katrin Garcia MD Med Refill from Last 3 Months Immunizations Immunization Administration Dates Next Due Influenza Injectable Quadriv [...] Sign Reading Time Taken Comments Blood Pressure 130/82 03/24/2025 10:06 AM EDT Pulse 68 04/27/2025 2:06 PM EDT Temperature 36.4 C (97.6 F) 04/27/2025 2:06 PM EDT Respiratory Rate 20 04/27/2025 2:06 PM EDT Oxygen Saturation 97% 03/24/2025 9:45 AM EDT Inhaled Oxygen Concentration - - Weight 86.6 kg (191 lb) 06/23/2025 9:46 AM EDT Height 160 cm (5' 3 ) 06/23/2025 9:46 AM EDT Body Mass Index 33.83 06/23/2025 9:46 AM EDT Plan of Treatment Upcoming Encounters Date Type Department Care Team (Late st Contact Info) Description 07/30/2025 11:30 AM EST Clinical Support [facility]TRITION [address] [place] [address] [place] [address] Health Maintenance Due Date Last Done Comments CT Colonography 1960 Colonoscopy 1960 Colorectal Cancer Screening 1960 FIT DNA/Cologuard 1960 FIT 1960 FOBT 1960 Sigmoidoscopy 1959 Diabetes: Foot Exam 1969 Eye Exam 1969 Hepatitis C Screening 1977 COVID-19 Vaccine ( season) 2025 07/22/2023, 01/30/2022, 10/18/2021, Additional history exists Influenza Vaccine (#1) 2025 , 07/09/2023, 07/02/2022 Depression Monitoring 09/24/2025 03/24/2025, 025 Diabetes: Hemoglobin A1C 09/24/2025 025, 12/23/2024, 08/05/2024, Additional history exists Diabetes: Urine Protein Screening 12/30/2025 12/30/2024, 10/09/2021 Lipid Panel 12/30/2025 12/30/2024, 10/02/2023, 10/09/2021 Alcohol/Substance Use Screening 03/24/2026 03/24/2025 SDOH Screening 03/24/2026 03/24/2025 Tobacco Screening 04/27/2026 04/27/2025 Mammogram 06/08/2026 06/08/2024, 2022 DTaP/Tdap/Td Vaccines (2 - Td or Tdap) 12/28/2030 12/28/2020, 04/28/1997 RSV Patients and Patients Aged 60 years or older (1 - 1-dose 75+ series) 2034 Zoster Vaccines Completed 09/19/2022, 07/09/2022 Cervical Cancer Screening Discontinued HPV/Cotest Discontinued 07/09/2023 Pap Smear Discontinued 07/09/2023, 07/09/2023 Pneumococcal Vaccine: 50+ Years Completed 04/15/2024 HIB Vaccines Aged Out No longer eligi [...] Diagnosis Comments POCT GLYCATED HEMOGLOBIN, TOTAL Routine 03/24/2025 10:00 AM EDT Diet-controlled type 2 diabetes mellitus ([facility]) ALBUMIN, RANDOM URINE W/CREATININE Routine 12/30/2024 9:58 AM EDT Diet-controlled type 2 diabetes mellitus (CMS/HCC) Vaginal discharge Acquired hypothyroidism Mixed bipolar affective disorder, moderate (CMS/HCC) LIPID PANEL, STANDARD Routine 12/30/2024 9:32 AM EDT Diet-controlled type 2 diabetes mellitus (CMS/HCC) Vaginal discharge Acquired hypothyroidism Mixed bipolar affective disorder, moderate (CMS/HCC) HM MAMMOGRAPHY Routine 06/08/2024 9:03 AM EDT HPV DNA PROBE, AMPLIFIED Routine 07/09/2023 9:45 AM EDT PAP SMEAR Routine 07/09/2023 9:45 AM EDT from Last 3 Months or Most Recently Relevant to Health Maintenance Results * (ABNORMAL) POCT HGB A1C (03/24/2025 10:00 AM EDT) Hemoglobin A1C 6.0(A) 4.0 - 5.7 % QC Media Lot # [id number] Lot# Expiration Date [id number] Blood 03/24/2025 10:0 0 AM EDT Katrin Garcia MD POINT OF CARE TEST ENTER/EDIT ORDERABLES Final Result * Albumin, Random Urine W/Creatinine (12/30/2024 9:58 AM EDT) Creatinine, Urine 53.65 mg/dL [facility] Microalbumin Urine 11.0 mg/L [facility] Microalbum Creatinine Ratio Ur 20.5 <30 ug/mg cr [facility] Comment:Albumin/Creatinine R atio Reference Ranges: Normal: < 30 ug/mg creatinine Microalbuminuria: 30 - 300 ug/mg creatinineClinical Albuminuria: > 300 ug/mg creatinine Urine (Urine, Random) 12/30/2024 9:58 AM EDT 12/30/2024 2:05 PM EDT us Katrin Garcia MD LAB URINE ORDERABLES Final Re sult Performing Organization Address [facility] Co de Phone Number [facility] [address] [place] [address] [phone] * Lipid Panel, Standard (12/30/2024 9:32 AM EDT) Triglycerides 71 <150 mg/dL [facility] Comment:Desirable Triglyceri de: less than 150 mg/dLBorderline High Triglyceride 150-199 mg/dLHigh Triglyceride: 200-499 mg/dLVery High Triglyceride: greater than or equal to 5OO mg/dL Cholesterol 155 <200 mg/dL [facility] Comment:Desirable Cholestero l: less than 200 mg/dLBorderline High Cholesterol: 200-239 mg/dLHigh Cholesterol: greater than 239 mg/dL LDL Cholesterol Calculated 72 <100 mg/dL [facility] Comment:Desirable LDL: less than 100 mg/dLNear Optimal/Above Optimal LDL: 110- 129 mg/dLBorderline High LDL: 130-159 mg/dLHigh LDL: 160-189 mg/dLVery High LDL: greater than or equal to 190 mg/dL HDL Cholesterol 69 >40 mg/dL [facility] Comment:Desirable HDL: great er than 40 mg/dL Note: This HDL assay may give artificially low results in patients with liver disease. Blood Venous blood specimen / Unknown 12/30/2024 9:32 AM EDT 12/30/2024 2:06 PM EDT Katrin Garcia MD LAB BLOOD ORDERABLES Final Re sult Performing Organization Address [facility]/ZIP Co de Phone Number [facility] [address] [place] [address] [phone] * Hm Mammography (06/08/2024 9:03 AM EDT) Anatomical Region Laterality Modality Other us Historical Provider HEALTH MAINTENANCE Final Result * HPV DNA probe, amplified (07/09/2023 9:45 AM EDT) HPV mRNA E6/E7 Not Detected Not Detected [facility] Comment:Methodology: Transcr iption-Mediated AmplificationThis assay detects E6/E7 viral messenger RNA (mRNA) from 14high-risk HPV types (16,18,31,33,35,39,45,51,52,56,58,59,66,68).Cervical sources are required for HPV testing.If a vaginal source from a patient who has had atotal hysterectomy with removal of cervix wassubmitted, please contact the testing laboratoryfor alternative testing options.For additional information, please refer tohttp://education.Gevo/faq/OPC017s3(This link if provided for information/educational purposes only.)THIS TEST WAS PERFORMED AT:[facility] [place] [phone] JEFFREY MD 07/09/2023 9:45 AM EDT 07/10/2023 9:00 AM EDT Katrin Garcia MD LAB MICROBIOLOGY - GENERAL OR DERABLES Final Result [facility] [address] [place] [phone] * Pap Smear (07/09/2023 9:45 AM EDT) 07/09/2023 9:45 AM EDT 07/10/2023 9:00 AM EDT Narrative [facility] - 07/18/2023 11:11 AM EST ----- ------- Name: Magalis Parker Age/Sex: 63/F : 1960 Unit#: [id number] Attend Dr: Katrin Garcia MD Re07/09/23 Status: DEP REF Location: HO.CHCLNP Disch: ----- ------- SPEC : [id number] RECD: 07/10/23 STATUS: ELVIRA KIDD NUM: [id number] TIAN: 07/09/23 [facility] DR: Katrin Garcia MD ENTERED: 07/10/23 SP TYPE: Pap Smr OTHR DR: ORDERED: Pap Smear Interpretation Satisfactory for evaluation. Atrophic. Negative for intraepithelial lesion or malignancy. HPV mRNA E6/E7: NOT DETECTED This assay detects E6/E7 viral messenger RNA (mRNA) from 14 high-risk HPV types (16, 18, 31, 33, 35, 39, 45, 51, 52, 56, 58, 59, 66, 68) HPV testing performed by [facility], [place], [place]. See reference laboratory pion of the EMR for entire report. Clinical Information LMP: Unknown date Previous PAP test: Unknown date/findings Other history: Hysterectomy 8yrs ago due to uterine fibroids. Material Received ThinPrep-Vaginal ----- ------- Signed (signature on file) PEYMAN Quinones (ASC) 07/18/23 1111 ----- ------- END OF REPORT Katrin Garcia MD LAB CYTOLOGY ORDERABLES Final Result [facility] [address] [place] [address] [phone] from Last 3 Months or Most Recently Relevant to Health Maintenance Insurance [facility] [employer] OPT[employer] (O D-SNP) SHRUTHI BLEDSOE [id number] Advance Directives Documents on File Type Date Recorded Patient Shrink Pit Supervisor Expl anation HealthCare Proxy 07/19/2023 Health Care Proxy Care Teams Electric Serviceman Relationship Specialty Start Date End Date Katrin Garcia MD [address] [place] [phone] PCP - General Family Medicine 10/04/21
== END 2025-07-19 13:30 | disposition home or self-care (01) ==
LOC: HO.MAMMO 13:29
PROVIDERS: PCP Pediatrics; Visit Provider Pediatrics
DX: Z12.31 Encounter for screening mammogram for malignant neoplasm of breast (principal); Z13.820 Encounter for screening for osteoporosis; M85.88 Other specified disorders of bone density and structure, other site
CPT/HCPCS: 77063; 77067; 77080

== ENCOUNTER → 2025-07-19 14:30 | Outpatient (BNV) | payer OTHER, SELFPAY | PROVIDERS: PCP Pediatrics; Visit Provider Radiology Diagnostic Radiology | DX: E28.39 Other primary ovarian failure (principal); Z12.31 Encounter for screening mammogram for malignant neoplasm of breast | CPT/HCPCS: 77063; 77067; 77080 ==